=== PATIENT | male | born 1945 | race Caucasian/White ===

== ENCOUNTER 2017-04-03 16:45 | Inpatient (IN) | payer MEDICARE ==
[~2017-04-03] VITALS: Ht 170.2 cm; Wt 84.0 kg
[2017-04-03] VITALS (8 sets, daily range): BP systolic 111–123; BP diastolic 52–88; PULSE 75–100; RESP 16–20; TEMP 98.4–99.2; O2SAT 88–95
[2017-04-03] MEDS ORDERED: METO25TA3 PO (17:27)
[2017-04-03] MEDS ORDERED: ERGO2000 PO (17:27)
[2017-04-03] MEDS ORDERED: ASPI-183 PO (17:27)
[2017-04-03] MEDS ORDERED: WELC3.753 PO (17:27)
[2017-04-03] MEDS ORDERED: SIMV40TA PO (17:27)
[2017-04-03] MEDS ORDERED: CYAN1TAB24 (17:27)
[2017-04-03] MEDS ORDERED: CILO100T PO (17:27)
[2017-04-03] MEDS ORDERED: NOVOLOG PUMP (17:27)
[2017-04-03 17:39] LABS: AUTOMATED NEUTROPHIL # 9.2 TH/MM3 (1.8-7.7); BASOPHIL % 0.3 % (0.0-2.0); EOSINOPHIL % 0.1 % (0.0-4.0); HEMATOCRIT 41.5 % (39.0-51.0); HEMOGLOBIN 13.9 GM/DL (13.0-17.0); LYMPH % 3.8 % (9.0-44.0); LYMPHOCYTE # 0.4 TH/MM3 (1.0-4.8); MEAN CELL VOLUME 90.4 FL (80.0-100.0); MEAN CORPUSCULAR HEMOGLOBIN 30.4 PG (27.0-34.0); MEAN CORPUSCULAR HGB CONC 33.6 % (32.0-36.0); MEAN PLATELET VOLUME 8.9 FL (7.0-11.0); MONO % 5.6 % (0.0-8.0); MONOCYTE # 0.6 TH/MM3 (0-0.9); NEUT % 90.2 % (16.0-70.0); PLATELET COUNT 165 TH/MM3 (150-450); RED CELL DISTRIBUTION WIDTH 12.6 % (11.6-17.2); WHITE BLOOD COUNT 10.2 TH/MM3 (4.0-11.0)
[2017-04-03 17:51] LABS: CHLORIDE 105 MEQ/L (98-107); SODIUM (NA) 138 MEQ/L (136-145)
[2017-04-03 17:55] LABS: ALBUMIN 3.7 GM/DL (3.4-5.0); BICARBONATE 25.3 MEQ/L (21.0-32.0); BLOOD UREA NITROGEN 9 MG/DL (7-18); GLUCOSE,RANDOM 183 MG/DL (74-106)
[2017-04-03 17:58] LABS: ALT (GPT) 30 U/L (12-78); AST (GOT) 20 U/L (15-37); CREATININE 0.98 MG/DL (0.60-1.30); GLOMERULAR FILTRATION RATE 75 ML/MIN (>89)
[2017-04-03 18:00] LABS: TOTAL BILIRUBIN ADULT 0.4 MG/DL (0.2-1.0); TOTAL PROTEIN 6.9 GM/DL (6.4-8.2)
[2017-04-03] MEDS ORDERED: ONDANSETRON HCL 4 MG/2 ML VIAL IV PUSH ONE (18:00)
[2017-04-03] MEDS ORDERED: PANTOPRAZOLE SODIUM 40 MG VIAL IV PUSH ONE (18:00)
[2017-04-03] MEDS ORDERED: SODIUM CHLOR 0.9% 1000 ML INJ 1,000 ML IV SCH (18:00)
[2017-04-03 18:01] LABS: ALKALINE PHOSPHATASE 84 U/L (45-117)
--- NOTE | 2017-04-03 18:19 | PD ---
HPI Chief Complaint: GI Complaint Time Seen by Provider: 17:45 Travel History International Travel<30 days: No Contact w/Intl Traveler<30days: No Traveled to known affect area: No History of Present Illness HPI 71-year-old male complains of abdominal pain and nausea vomiting. Patient status post colonoscopy with polyp removal this morning at [facility]. Patient started having increasing nausea and vomiting about half an hour after the procedure. Patient's diabetic has insulin pump. Patient states that his blood sugar was elevated to 400 morning. Patient denies any headache. Patient denies any chest pain or shortness of breath. Patient states that he has mild cramping pain on the right side the abdomen. Patient denies any pain radiation. Patient denies dysuria or frequency. Patient denies any fever chills. Patient has history of diabetes, CAD status post CABG, prostatectomy. Patient also has history of peripheral vascular disease. PFSH Past Medical History Cardiovascular Problems: Yes (PERIPHERAL VASCULAR DISEASE) Diabetes: Yes (TYPE 1) Patient Takes Glucophage: No Myocardial Infarction: Yes Tetanus Vaccination: Unknown Influenza Vaccination: Yes Past Surgical History Abdominal Surgery: Yes Cardiac Surgery: Yes Coronary Artery Bypass Graft: Yes Genitourinary Surgery: Yes Insulin Pump: Yes Prostatectomy: Yes Social History Alcohol Use: Yes (ONCE OR TWICE A MONTH) Tobacco Use: No Substance Use: No Allergies-Medications (Allergen,Severity, Reaction): Coded Allergies: No Known Drug Allergies (Verified Allergy, Unknown, 04/03/17) Reported Meds & Prescriptions Reported Meds & Active Scripts Active Reported Aspirin 325 Mg Tab 325 Mg PO DAILY B12 (Cyanocobalamin) 1,000 Mcg Tab 1,200 Mcg Simvastatin 40 Mg Tab 40 Mg PO HS Vitamin D2 (Ergocalciferol) 2,000 Unit Tab 50,000 Units PO WEEKLY Cilostazol 100 Mg Tab 100 Mg PO BID Metoprolol Tartrate 25 Mg Tab 25 Mg PO BID Welchol (Colesevelam HCl) 3.75 Gm Pkt 25 Mg PO BID [Novolog Pump] Unknown Dose Review of Systems General / Constitutional: No: Fever Eyes: No: Visual changes HENT: No: Headaches Cardiovascular: No: Chest Pain or Discomfort Respiratory: No: Shortness of Breath Gastrointestinal: Positive: Nausea, Vomiting, No: Abdominal Pain Genitourinary: No: Dysuria Musculoskeletal: No: Pain Skin: No Rash Neurologic: No: Weakness Psychiatric: No: Depression Endocrine: No: Polydipsia Hematologic/Lymphatic: No: Easy Bruising Physical Exam Narrative GENERAL: Well-nourished, well-developed patient. SKIN: Focused skin assessment warm/dry. HEAD: Normocephalic. EYES: No scleral icterus. No injection or drainage. NECK: Supple, trachea midline. No JVD or lymphadenopathy. CARDIOVASCULAR: Regular rate and rhythm without murmurs, gallops, or rubs. RESPIRATORY: Breath sounds equal bilaterally. No accessory muscle use. GASTROINTESTINAL: Abdomen soft, nondistended. Patient has moderate tenderness on palpation right upper quadrant and right mid abdomen area. No rebound tenderness. No mass. MUSCULOSKELETAL: No cyanosis, or edema. BACK: Nontender without obvious deformity. No CVA tenderness. Neurologic exam: Patient's awake alert oriented 3. No obvious focal neurological deficit. Data Data Last Documented VS Vital Signs Date Time Temp Pulse Resp B/P (MAP) Pulse Ox O2 Delivery O2 Flow Rate FiO2 04/03/17 17:17 100 16 111/57 (75) 92 Nasal Cannula 2.00 04/03/17 17:01 98.8 Orders Orders Complete Blood Count With Diff (04/03/17 17:30) Comprehensive Metabolic Panel (04/03/17 17:30) Urinalysis - C+S If Indicated (04/03/17 17:30) Lipase (04/03/17 17:30) Iv Access Insert/Monitor (04/03/17 17:30) Ecg Monitoring (04/03/17 17:30) Oximetry (04/03/17 17:30) Sodium Chlor 0.9% 1000 Ml Inj (Ns 1000 M (04/03/17 18:00) Ondansetron Inj (Zofran Inj) (04/03/17 18:00) Pantoprazole Inj (Protonix Inj) (04/03/17 18:00) D-Dimer (04/03/17 17:56) Ct Abd/Pel W Iv Contrast(Rout) (04/03/17 17:57) Ct Pulmonary Angiogram (04/03/17 17:57) Chest, Single Ap (04/03/17 17:59) Labs Laboratory Tests Test 04/03/17 17:30 White Blood Count 10.2 TH/MM3 Red Blood Count 4.60 MIL/MM3 Hemoglobin 13.9 GM/DL Hematocrit 41.5 % Mean Corpuscular Volume 90.4 FL Mean Corpuscular Hemoglobin 30.4 PG Mean Corpuscular Hemoglobin Concent 33.6 % Red Cell Distribution Width 12.6 % Platelet Count 165 TH/MM3 Mean Platelet Volume 8.9 FL Neutrophils (%) (Auto) 90.2 % Lymphocytes (%) (Auto) 3.8 % Monocytes (%) (Auto) 5.6 % Eosinophils (%) (Auto) 0.1 % Basophils (%) (Auto) 0.3 % Neutrophils # (Auto) 9.2 TH/MM3 Lymphocytes # (Auto) 0.4 TH/MM3 Monocytes # (Auto) 0.6 TH/MM3 Eosinophils # (Auto) 0.0 TH/MM3 Basophils # (Auto) 0.0 TH/MM3 CBC Comment DIFF FINAL Differential Comment Blood Urea Nitrogen 9 MG/DL Creatinine 0.98 MG/DL Random Glucose 183 MG/DL Total Protein 6.9 GM/DL Albumin 3.7 GM/DL Calcium Level 8.0 MG/DL Alkaline Phosphatase 84 U/L Aspartate Amino Transf (AST/SGOT) 20 U/L Alanine Aminotransferase (ALT/SGPT) 30 U/L Total Bilirubin 0.4 MG/DL Sodium Level 138 MEQ/L Potassium Level 3.7 MEQ/L Chloride Level 105 MEQ/L Carbon Dioxide Level 25.3 MEQ/L Anion Gap 8 MEQ/L Estimat Glomerular Filtration Rate 75 ML/MIN Lipase 55 U/L MDM Medical Decision Making Medical Screen Exam Complete: Yes Emergency Medical Condition: Yes Differential Diagnosis Differential diagnosis including bowel obstruction, gastroenteritis, bowel perforation, ileus, gastritis, pancreatitis, colitis, UTI, pyelonephritis, nephrolithiasis. Narrative Course 71-year-old male abdominal pain and nausea vomiting. Status post colonoscopy with polyp removal This morning. Normal saline solution 1 25 cc an hour. Zofran 4 mg IV. Protonix 40 mg IV. Patient also with mild hypoxemia. CT pulmonary angiogram be done to rule out PE. Dickson Garvey MD Apr 03, 2017 18:19
--- NOTE | 2017-04-03 18:23 | RADRPT ---
EXAM DATE/TIME: 04/03/2017 18:08 [facility] COMPARISON: No previous studies available for comparison. INDICATIONS : Weakness, vomiting post colonoscopy this morning MEDICAL HISTORY : Cardiovascular disease. SURGICAL HISTORY : CABG. ENCOUNTER: Initial ACUITY: 1 day PAIN SCORE: 0/10 LOCATION: Bilateral chest FINDINGS: A single view of the chest demonstrates the lungs to be symmetrically aerated without evidence of mas s, infiltrate or effusion. The 5 mm calcified granuloma lower lateral right lung. The cardiomediast inal contours are unremarkable. Osseous structures are intact. Prior median sternotomy with intact sternal wire sutures. CONCLUSION: The lungs are clear. No acute findings. Wesly Granda MD on April 03, 2017 at 18:20 Board Certified Radiologist. This report was verified electronically.
[2017-04-03 18:52] LABS: D-DIMER 1.14 MG/L FEU (0.00-0.50)
[2017-04-03 19:04] LABS: INTERNATIONAL NORMALIZED RATIO 1.1 RATIO; PROTHROMBIN TIME - PATIENT 11.2 SEC (9.8-11.6)
[2017-04-03] MEDS ORDERED: IOHEXOL 350 MG/ML 10 ML VIAL (for RAD DIAG) IVCONTRAST ONE ×3 (19:22→21:31)
--- NOTE | 2017-04-03 19:45 | RADRPT ---
EXAM DATE/TIME: 04/03/2017 19:06 [facility] COMPARISON: No previous studies available for comparison. INDICATIONS : Nausea and vomiting status post colonoscopy with polyp removal today. Elevated D-dimer IV CONTRAST: 100 cc Omnipaque 350 (iohexol) IV ; Cumulative dose for multiple exams. RADIATION DOSE: 23.87 CTDIvol (mGy) MEDICAL HISTORY : Myocardial infarction. Diabetes mellitus type 1. Peripheral vascular disease. SURGICAL HISTORY : CABG Insulin pump. ENCOUNTER: Initial ACUITY: 1 day PAIN SCALE: 0/10 LOCATION: chest TECHNIQUE: Volumetric scanning of the chest was performed using a pulmonary embolism protocol MIP images were re constructed. Using automated exposure control and adjustment of the mA and/or kV according to patien t size, radiation dose was kept as low as reasonably achievable to obtain optimal diagnostic quality images. DICOM format image data is available electronically for review and comparison. Follow-up recommendations for detected pulmonary nodules are based at a minimum on nodule size and pa tient risk factors according to Fleischner Society Guidelines. FINDINGS: The examination is of moderate diagnostic quality. No large or central pulmonary embolus identified. Tertiary branches are not well-seen. The heart is normal in size. There is no hilar or mediastinal adenopathy. There is moderate atheroscl erotic plaquing of the coronary arteries. The patient is post median sternotomy. No pericardial effus ion is identified. There are mild atelectatic changes in the lung bases. In addition, the examination demonstrates a 6 m m calcified granuloma in the right lower lobe. The visualized portion of upper abdomen demonstrates a small amount of free intraperitoneal air benea th the hemidiaphragm. This is only partially visualized. CT imaging of the abdomen and pelvis would b e of benefit for further assessment. CONCLUSION: 1. There is very limited visualization of the upper abdomen. This demonstrates some punctate collecti ons of free air. CT imaging of the abdomen and pelvis would be warranted for further assessment. 2. No pulmonary embolus identified. 3. Atelectatic changes in the lung bases. 4. 6 mm calcified granuloma in the right lower lobe. Gulshan Carson MD on April 03, 2017 at 19:39 Board Certified Radiologist. This report was verified electronically.
--- NOTE | 2017-04-03 19:53 | RADRPT ---
EXAM DATE/TIME: 04/03/2017 19:06 [facility] COMPARISON: No previous studies available for comparison. INDICATIONS : Nausea and vomiting status post colonoscopy with polyp removal today. IV CONTRAST: 100 cc Omnipaque 350 (iohexol) IV ; Cumulative dose for multiple exams. ORAL CONTRAST: No oral contrast ingested. RADIATION DOSE: 21.64 CTDIvol (mGy) MEDICAL HISTORY : Diabetes mellitus type 1. Peripheral vascular disease. Myocardial infarction. SURGICAL HISTORY : Prostatectomy. CABGInsulin pump. ENCOUNTER: Initial ACUITY: 1 day PAIN SCALE: 0/10 LOCATION: abdomen TECHNIQUE: Volumetric scanning of the abdomen and pelvis was performed. Using automated exposure control and ad justment of the mA and/or kV according to patient size, radiation dose was kept as low as reasonably achievable to obtain optimal diagnostic quality images. DICOM format image data is available electro nically for review and comparison. FINDINGS: The limited portion of the lung base visualized demonstrates atelectatic change in the lung bases but is otherwise clear. Note is made of calcified granuloma in the subcarinal grace chain. The examinati on also demonstrates a 5 mm calcification in the right lower lobe. The appearance of the liver, spleen, pancreas, adrenal glands and kidneys is within normal limits. The abdominal aorta is normal in caliber. There is no retroperitoneal lymphadenopathy. The visualized loops of small and large bowel demonstrate a dilated fluid-filled appendix. There is s ome subtle inflammatory change around this. There is no evidence of bowel obstruction. There is no free fluid within the pelvis. No iliac or inguinal adenopathy is seen. The examination does demonstrate multiple small pockets of free intraperitoneal air. The osseous structures are intact. CONCLUSION: 1. There is free intraperitoneal air. 2. There is a dilated loop filled appendix. There is some subtle inflammatory change around this. Thi s would suggest possible appendicitis. Gulshan Carson MD on April 03, 2017 at 19:48 Board Certified Radiologist. This report was verified electronically.
--- NOTE | 2017-04-03 19:59 | PD ---
Physical Exam Date Seen by Provider: Apr 03, 2017 Time Seen by Provider: 19:55 Narrative Accepted in transfer care from Dr. Garvey GENERAL: Well-developed and nourished male in no acute distress no respiratory distress SKIN: Warm and dry. CARDIOVASCULAR: Increased regular rate and rhythm without murmurs, gallops, or rubs. RESPIRATORY: Breath sounds equal bilaterally. No accessory muscle use. GASTROINTESTINAL: Abdomen soft, non-tender, nondistended. Data Data Last Documented VS Vital Signs Date Time Temp Pulse Resp B/P (MAP) Pulse Ox O2 Delivery O2 Flow Rate FiO2 04/03/17 19:21 89 16 120/88 (99) 95 Nasal Cannula 04/03/17 17:17 2.00 04/03/17 17:01 98.8 Orders Orders Complete Blood Count With Diff (04/03/17 17:30) Comprehensive Metabolic Panel (04/03/17 17:30) Urinalysis - C+S If Indicated (04/03/17 17:30) Lipase (04/03/17 17:30) Iv Access Insert/Monitor (04/03/17 17:30) Ecg Monitoring (04/03/17 17:30) Oximetry (04/03/17 17:30) Sodium Chlor 0.9% 1000 Ml Inj (Ns 1000 M (04/03/17 18:00) Ondansetron Inj (Zofran Inj) (04/03/17 18:00) Pantoprazole Inj (Protonix Inj) (04/03/17 18:00) D-Dimer (04/03/17 17:56) Ct Abd/Pel W Iv Contrast(Rout) (04/03/17 17:57) Ct Pulmonary Angiogram (04/03/17 17:57) Chest, Single Ap (04/03/17 17:59) Act Partial Throm Time (Ptt) (04/03/17 18:00) Prothrombin Time / Inr (Pt) (04/03/17 18:00) Iohexol 350 Inj (Omnipaque 350 Inj) (04/03/17 19:22) Piperacil-Tazo 4.5 Gm Premix (Zosyn 4.5 (04/03/17 20:00) Labs Laboratory Tests Test 04/03/17 17:30 04/03/17 18:00 White Blood Count 10.2 TH/MM3 Red Blood Count 4.60 MIL/MM3 Hemoglobin 13.9 GM/DL Hematocrit 41.5 % Mean Corpuscular Volume 90.4 FL Mean Corpuscular Hemoglobin 30.4 PG Mean Corpuscular Hemoglobin Concent 33.6 % Red Cell Distribution Width 12.6 % Platelet Count 165 TH/MM3 Mean Platelet Volume 8.9 FL Neutrophils (%) (Auto) 90.2 % Lymphocytes (%) (Auto) 3.8 % Monocytes (%) (Auto) 5.6 % Eosinophils (%) (Auto) 0.1 % Basophils (%) (Auto) 0.3 % Neutrophils # (Auto) 9.2 TH/MM3 Lymphocytes # (Auto) 0.4 TH/MM3 Monocytes # (Auto) 0.6 TH/MM3 Eosinophils # (Auto) 0.0 TH/MM3 Basophils # (Auto) 0.0 TH/MM3 CBC Comment DIFF FINAL Differential Comment Blood Urea Nitrogen 9 MG/DL Creatinine 0.98 MG/DL Random Glucose 183 MG/DL Total Protein 6.9 GM/DL Albumin 3.7 GM/DL Calcium Level 8.0 MG/DL Alkaline Phosphatase 84 U/L Aspartate Amino Transf (AST/SGOT) 20 U/L Alanine Aminotransferase (ALT/SGPT) 30 U/L Total Bilirubin 0.4 MG/DL Sodium Level 138 MEQ/L Potassium Level 3.7 MEQ/L Chloride Level 105 MEQ/L Carbon Dioxide Level 25.3 MEQ/L Anion Gap 8 MEQ/L Estimat Glomerular Filtration Rate 75 ML/MIN Lipase 55 U/L Prothrombin Time 11.2 SEC Prothromb Time International Ratio 1.1 RATIO Activated Partial Thromboplast Time 25.0 SEC D-Dimer Quantitative (PE/DVT) 1.14 MG/L [facility]U [facility] Medical Record Reviewed: Yes Supervised Visit with KEVIN: No Differential Diagnosis Accepted in transfer of care from Dr. Dennis please refer to his dictation Narrative Course Accepted transfer of care from Dr. Dukes please refer to his dictation; plan follow-up pending imaging studies CT pulmonary angiogram and CT abdomen pelvis. Patient with recent colonoscopy performed today at [facility] with 3.5 cm sessile polyp biopsy near the appendiceal orifice. Patient subsequently developed right-sided abdominal discomfort. Patient had mild tachycardia. Patient was identified to have an elevated d-dimer with a room air O2 sat upon arrival in 88%; Blood pressure has been stable and hemoglobin was identified to be within normal range at 13.9. Patient with history of insulin-dependent diabetes on insulin pump, CAD with MN and CABG, peripheral vascular disease, dyslipidemia, prostatectomy Patient informed of imaging results which shows no PE evidence of subdiaphragmatic free air with inflammatory changes about the fluid-filled appendix; call placed to general surgery Physician Communication Physician Communication call placed to Analy Beyer MD Apr 03, 2017 19:59
[2017-04-03] MEDS ORDERED: PIPERACIL-TAZO 4.5 GM PREMIX 100 ML IV ONE (20:00)
[2017-04-03] MEDS ORDERED: LEVOFLOXACIN 500 MG PREMIX INJ 100 ML IV ONE (20:15)
[2017-04-03] MEDS ORDERED: SODIUM CHLORID 0.9% 500 ML INJ 500 ML IV ONE (20:15)
[2017-04-03] MEDS ORDERED: metroNIDAZOLE 500 MG INJ 100 ML IV ONE (20:15)
--- NOTE | 2017-04-03 21:24 | PD.CONS ---
HPI Service General Surgery Consult Requested By Dr. Churchill Reason for Consult Free air Primary Care Physician Ifeanyi Damon MD History of Present Illness 71 yo M presents with vomiting and abdominal pain. Patient had a large polyp at appendiceal orifice found by Dr. Gaming. The patient was treated this morning at [facility] with endoscopic mucosal resection of 3cm polyp (prior path benign ) with successful removal of entire polyp. About 30 minutes after the procedure he began having nausea and subsequently developed vomiting. The vomiting has been persistent and he also developed severe abdominal pain primarily in the right lower abdomen. He presented to [place] emergency department was noted to have mild tachycardia and severe tenderness in the right lower abdomen. He has a white blood count of 10,000 with 90% neutrophils. CT scan of the abdomen and pelvis shows free intraperitoneal air. There is fluid filled appendix and some surrounding inflammatory changes. I reviewed the images. The patient has a past surgical history of CABG and prostatectomy which appears to be robotic. He is a type I diabetic and has an insulin pump. Review of Systems Constitutional: DENIES: Fever, Chills Eyes: DENIES: Eye inflammation, Eye pain Ears, nose, mouth, throat: DENIES: Oral lesions, Throat pain Respiratory: DENIES: Cough, Shortness of breath Cardiovascular: DENIES: Chest pain, Palpitations Gastrointestinal: COMPLAINS OF: Abdominal pain, Nausea, Vomiting Integumentary: DENIES: Pruritus, Rash Neurologic: DENIES: Seizures, Speech Problems Past Family Social History Past Medical History CAD status post CABG Prostate cancer status post prostatectomy Type 1 diabetes mellitus with insulin pump PVD Past Surgical History CABG Prostatectomy Reported Medications Reported Meds & Active Scripts Active Reported Aspirin 325 Mg Tab 325 Mg PO DAILY B12 (Cyanocobalamin) 1,000 Mcg Tab 1,200 Mcg Simvastatin 40 Mg Tab 40 Mg PO HS Vitamin D2 (Ergocalciferol) 2,000 Unit Tab 50,000 Units PO WEEKLY Cilostazol 100 Mg Tab 100 Mg PO BID Metoprolol Tartrate 25 Mg Tab 25 Mg PO BID Welchol (Colesevelam HCl) 3.75 Gm Pkt 25 Mg PO BID [Novolog Pump] Unknown Dose Allergies: Coded Allergies: No Known Drug Allergies (Verified Allergy, Unknown, 04/03/17) Active Ordered Medications Current Medications Medications (Trade) Dose Ordered Sig/Abbie Route Start Time Stop Time Status Last Admin Sodium Chloride 1,000 ml @ 125 mls/hr Q8H IV 04/03/17 18:00 04/03/17 18:08 Metronidazole 100 ml @ 100 mls/hr ONCE ONCE IV 04/03/17 20:15 04/03/17 21:14 Levofloxacin/ Dextrose 100 ml @ 100 mls/hr ONCE ONCE IV 04/03/17 20:15 04/03/17 21:14 04/03/17 20:49 Sodium Chloride 500 ml @ 500 mls/hr BOLUS ONCE IV 04/03/17 20:15 04/03/17 21:14 04/03/17 20:49 Family History Noncontributory Social History 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 He is here with his . No tobacco or drug use. Occasional alcohol use. Physical Exam Vital Signs Vital Signs Date Time Temp Pulse Resp B/P (MAP) Pulse Ox O2 Delivery O2 Flow Rate FiO2 04/03/17 19:21 89 16 120/88 (99) 95 Nasal Cannula 04/03/17 17:17 100 16 111/57 (75) 92 Nasal Cannula 2.00 04/03/17 17:10 Nasal Cannula 2.00 04/03/17 17:10 88 Room Air 04/03/17 17:01 98.8 99 20 121/62 (81) 88 Physical Exam GENERAL: Awake and alert. Cooperative. Does not appear critically ill but is in some pain. Mild tachycardia. HEAD: Normocephalic. Atraumatic. EYES: Pupils equal round and reactive to light bilaterally. No scleral icterus. ENT: Moist oral mucosa. NECK: Trachea midline. CHEST: Nonlabored breathing. No respiratory distress. CARDIOVASCULAR: Regular rate and rhythm. ABDOMEN: Mild distention. Small midline scar at umbilicus with a associated small reducible umbilical hernia. Severe left lower quadrant tenderness to deep palpation. Severe right lower quadrant tenderness and rebound. Otherwise nontender. EXTREMITIES: No cyanosis or edema. SKIN: Warm, dry, nonjaundiced. Appears somewhat pale. Laboratory Laboratory Tests Test 04/03/17 17:30 04/03/17 18:00 04/03/17 20:20 White Blood Count 10.2 Red Blood Count 4.60 Hemoglobin 13.9 Hematocrit 41.5 Mean Corpuscular Volume 90.4 Mean Corpuscular Hemoglobin 30.4 Mean Corpuscular Hemoglobin Concent 33.6 Red Cell Distribution Width 12.6 Platelet Count 165 Mean Platelet Volume 8.9 Neutrophils (%) (Auto) 90.2 Lymphocytes (%) (Auto) 3.8 Monocytes (%) (Auto) 5.6 Eosinophils (%) (Auto) 0.1 Basophils (%) (Auto) 0.3 Neutrophils # (Auto) 9.2 Lymphocytes # (Auto) 0.4 Monocytes # (Auto) 0.6 Eosinophils # (Auto) 0.0 Basophils # (Auto) 0.0 CBC Comment DIFF FINAL Differential Comment Blood Urea Nitrogen 9 Creatinine 0.98 Random Glucose 183 Total Protein 6.9 Albumin 3.7 Calcium Level 8.0 Alkaline Phosphatase 84 Aspartate Amino Transf (AST/SGOT) 20 Alanine Aminotransferase (ALT/SGPT) 30 Total Bilirubin 0.4 Sodium Level 138 Potassium Level 3.7 Chloride Level 105 Carbon Dioxide Level 25.3 Anion Gap 8 Estimat Glomerular Filtration Rate 75 Lipase 55 Prothrombin Time 11.2 Prothromb Time International Ratio 1.1 Activated Partial Thromboplast Time 25.0 D-Dimer Quantitative (PE/DVT) 1.14 Lactic Acid Level 2.4 Date/Time Source Procedure Growth Status 04/03/17 20:30 Blood Peripheral Aerobic Blood Culture Pending Received 04/03/17 20:30 Blood Peripheral Anaerobic Blood Culture Pending Received Result Diagram: 04/03/17 1730 04/03/17 173 Imaging Last Impressions Chest X-Ray 04/03/[id number] Signed Impressions: Service Date/Time: Monday, April 03, 2017 18:08 - CONCLUSION: The lungs are clear. No acute findings. Wesly Granda MD CT Angiography 04/03/[id number] Signed Impressions: Service Date/Time: Monday, April 03, 2017 19:06 - CONCLUSION: 1. There is very limited visualization of the upper abdomen. This demonstrates some punctate collections of free air. CT imaging of the abdomen and pelvis would be warranted for further assessment. 2. No pulmonary embolus identified. 3. Atelectatic changes in the lung bases. 4. 6 mm calcified granuloma in the right lower lobe. Gulshan Carson MD Abdomen/Pelvis CT 04/03/17 [id number] Signed Impressions: Service Date/Time: Monday, April 03, 2017 19:06 - CONCLUSION: 1. There is free intraperitoneal air. 2. There is a dilated loop filled appendix. There is some subtle inflammatory change around this. This would suggest possible appendicitis. Gulshan Carson MD Assessment and Plan Assessment and Plan 71-year-old male who underwent endoscopic mucosal resection of approximately 3 cm adenomatous polyp at appendiceal orifice this morning. The patient had unrecognized perforation and became symptomatic soon after the procedure was performed. Peritonitis is localized to the right lower quadrant. He does not appear significantly ill at this time. CT abdomen and pelvis shows small to moderate amount of free air with a small amount of free fluid on my reading. Dilated fluid-filled appendix is consistent with the history. I've had a discussion with the patient and his and recommend at this time to attempt nonoperative management. He will be kept nothing by mouth and placed on Levaquin and Flagyl. She will be closely monitored and reassessed tomorrow morning. If there is any clinical worsening he will be taken to the operating room for colectomy. According to his , pathology may be available as soon as tomorrow which may also affect decision making. They understand the situation and desire to proceed as discussed. Charly Cabrera MD Apr 03, 2017 21:24
[2017-04-03] MEDS: SODIUM CHLOR 0.9% 1000 ML INJ 1,000 ML IV SCH (21:25)
[2017-04-03] MEDS ORDERED: MAGNESIUM HYDROXIDE SUSP 30 ML CUP PO PRN (21:30)
[2017-04-03] MEDS ORDERED: LACTULOSE SYRUP 20 GM/30 ML CUP PO PRN (21:30)
[2017-04-03] MEDS ORDERED: BISACODYL 10 MG SUPP RECTAL PRN (21:30)
[2017-04-03] MEDS ORDERED: SENNOSIDES 8.6 MG TAB PO PRN (21:30)
[2017-04-03] MEDS ORDERED: MORPHINE SULFATE 2 MG/ML INJ IV PUSH PRN (21:30)
[2017-04-03] MEDS ORDERED: ACETAMINOPHEN 325 MG TAB PO PRN (21:30)
[2017-04-03] MEDS ORDERED: SODIUM CHLORIDE 0.9% FLUSH 10 ML FLUSH IV FLUSH PRN (21:30)
[2017-04-03] MEDS ORDERED: NALOXONE HCL 0.4 MG/ML AMP IV PUSH PRN (21:30)
[2017-04-03] MEDS: D5-1/2 NS + KCL 20 MEQ INJ 1,000 ML IV SCH (22:40)
[2017-04-04] VITALS (26 sets, daily range): BP systolic 102–120; BP diastolic 42–58; PULSE 80–100; RESP 15–19; TEMP 98–99.4; O2SAT 92–94
[2017-04-04] MEDS ORDERED: DEXTROSE 50% IN WATER 50 ML VIAL(D50) IV PUSH PRN (02:45)
[2017-04-04] MEDS ORDERED: GLUCAGON 1 MG/ML VIAL OTHER PRN (02:45)
[2017-04-04 03:14] LABS: AUTOMATED NEUTROPHIL # 11.2 TH/MM3 (1.8-7.7); BASOPHIL % 0.1 % (0.0-2.0); HEMATOCRIT 36.4 % (39.0-51.0); HEMOGLOBIN 12.8 GM/DL (13.0-17.0); LYMPH % 4.6 % (9.0-44.0); LYMPHOCYTE # 0.6 TH/MM3 (1.0-4.8); MEAN CELL VOLUME 89.7 FL (80.0-100.0); MEAN CORPUSCULAR HEMOGLOBIN 31.6 PG (27.0-34.0); MEAN CORPUSCULAR HGB CONC 35.2 % (32.0-36.0); MEAN PLATELET VOLUME 8.9 FL (7.0-11.0); MONO % 5.5 % (0.0-8.0); MONOCYTE # 0.7 TH/MM3 (0-0.9); NEUT % 89.8 % (16.0-70.0); PLATELET COUNT 143 TH/MM3 (150-450); RED BLOOD COUNT 4.06 MIL/MM3 (4.50-5.90); RED CELL DISTRIBUTION WIDTH 13.2 % (11.6-17.2); WHITE BLOOD COUNT 12.4 TH/MM3 (4.0-11.0)
[2017-04-04 03:20] LABS: CALCIUM 7.6 MG/DL (8.5-10.1); CREATININE 0.75 MG/DL (0.60-1.30)
[2017-04-04 04:00] LABS: BILIRUBIN, URINE NEG (NEG); BLOOD, URINE NEG (NEG); GLUCOSE,URINE 300 mg/dL (NEG); KETONE, URINE 80 mg/dL (NEG); MUCUS URINE FEW /lpf (OCC); NITRITE,URINE NEG (NEG); URINE COLOR YELLOW (YELLW/STRAW); URINE LEUKOCYTE ESTERASE NEG (NEG)
[2017-04-04] MEDS: metroNIDAZOLE 500 MG INJ 100 ML IV SCH ×4 (04:00→21:12)
[2017-04-04] MEDS: INSULIN ASPART SUPPLEMENTAL SCALE SQ SCH ×5 (06:03→23:13)
--- NOTE | 2017-04-04 06:30 | HHI.HP ---
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 Abdominal CT scan in ED showed small to moderate amount of free air and small amount of free fluid. He was seen by Dr. Cabrera from general surgery in the [place] ED who recommended conservative management with NPO status and transfer to [facility] under the hospitalist team for medical management for other chronic medical conditions. The patient is seen in his hospital room. He reports that he had the endoscopic resection of the polyp at [facility] 04/03 and went home. He became concerned when he developed acute nausea and vomiting with mild to moderate abdominal pain in the right lower abdominal quadrant and went to the ER for evaluation. He is currently denying any abdominal pain unless the right lower quadrant is palpated or unless he coughs - then the pain is moderate in intensity. He does not feel the need for pain medications since his pain is intermittent and very brief in it's duration. He denies any fevers, chills, sob , cough, or chest pain. Review of Systems Except as stated in HPI: all other systems reviewed are Neg Past Family Social History Past Medical History PVD s/p right BKA 2007 CAD HI Prostate CA s/p prostatectomy and radiation Macular Degeneration Denies hypertension, pulmonary disease, CHF, atrial fibrillation, liver problems , kidney problems, DVT, PE, CVA, seizures . Past Surgical History Right BKA 2007 CABG x 6 Prostatectomy . Reported Medications Reported Meds & Active Scripts Active Reported Aspirin 325 Mg Tab 325 Mg PO DAILY B12 (Cyanocobalamin) 1,000 Mcg Tab 1,200 Mcg Simvastatin 40 Mg Tab 40 Mg PO HS Vitamin D2 (Ergocalciferol) 2,000 Unit Tab 50,000 Units PO WEEKLY Cilostazol 100 Mg Tab 100 Mg PO BID Metoprolol Tartrate 25 Mg Tab 25 Mg PO BID Welchol (Colesevelam HCl) 3.75 Gm Pkt 25 Mg PO BID [Novolog Pump] Unknown Dose . Allergies: Coded Allergies: No Known Drug Allergies (Verified Allergy, Unknown, 04/03/17) Family History Father with colon cancer . Social History Tobacco: smoked until 1981, smoked about 1 PPD x 20 years Alcohol: drinks about 1 - 2 drinks per month, socially He is a retired radiologist, he is originally from [place] . Physical Exam Vital Signs Vital Signs Date Time Temp Pulse Resp B/P (MAP) Pulse Ox O2 Delivery O2 Flow Rate FiO2 04/04/17 05:00 93 04/04/17 04:18 93 04/04/17 03:27 98.6 100 15 102/42 (62) 93 04/04/17 03:27 96 04/04/17 02:00 93 04/04/17 01:05 99 04/04/17 01:05 99.4 95 17 110/57 (74) 94 04/04/17 00:00 97 04/03/17 23:55 90 04/03/17 23:19 98.4 103 114/52 (72) 96 04/03/17 22:30 99.2 04/03/17 21:00 75 16 123/52 (75) 95 Nasal Cannula 4.00 04/03/17 19:21 89 16 120/88 (99) 95 Nasal Cannula 04/03/17 17:17 100 16 111/57 (75) 92 Nasal Cannula 2.00 04/03/17 17:10 Nasal Cannula 2.00 04/03/17 17:10 88 Room Air 04/03/17 17:01 98.8 99 20 121/62 (81) 88 Physical Exam CONSTITUTIONAL: This is a very pleasant overweight older male patient, in no apparent distress. INTEGUMENTARY: No rashes. Cool and dry. HEAD: Atraumatic. Normocephalic. EYES: Right scleral injection noted - s/p injection 04/01 for macular degeneration. No drainage. ENT: Nose without bleeding, purulent drainage. Airway patent. NECK: Trachea midline. No JVD. CARDIOVASCULAR: Regular rate and rhythm without murmurs, gallops, or rubs. RESPIRATORY: Breath sounds diminished but equal bilaterally. No wheezes, rales, or rhonchi. GASTROINTESTINAL: Abdomen soft, non-tender, nondistended. No hepato-splenomegaly , or palpable masses. No guarding. MUSCULOSKELETAL: Extremities without clubbing, cyanosis, or edema. Moves all extremities equally. Right BKA noted. NEUROLOGICAL: Awake and alert. Motor and sensory grossly within normal limits. Normal speech. . Laboratory Laboratory Tests Test 04/03/17 17:30 04/03/17 18:00 04/03/17 20:20 04/04/17 02:56 White Blood Count 10.2 12.4 Red Blood Count 4.60 4.06 Hemoglobin 13.9 12.8 Hematocrit 41.5 36.4 Mean Corpuscular Volume 90.4 89.7 Mean Corpuscular Hemoglobin 30.4 31.6 Mean Corpuscular Hemoglobin Concent 33.6 35.2 Red Cell Distribution Width 12.6 13.2 Platelet Count 165 143 Mean Platelet Volume 8.9 8.9 Neutrophils (%) (Auto) 90.2 89.8 Lymphocytes (%) (Auto) 3.8 4.6 Monocytes (%) (Auto) 5.6 5.5 Eosinophils (%) (Auto) 0.1 0.0 Basophils (%) (Auto) 0.3 0.1 Neutrophils # (Auto) 9.2 11.2 Lymphocytes # (Auto) 0.4 0.6 Monocytes # (Auto) 0.6 0.7 Eosinophils # (Auto) 0.0 0.0 Basophils # (Auto) 0.0 0.0 CBC Comment DIFF FINAL DIFF FINAL Differential Comment Blood Urea Nitrogen 9 10 Creatinine 0.98 0.75 Random Glucose 183 247 Total Protein 6.9 Albumin 3.7 Calcium Level 8.0 7.6 Alkaline Phosphatase 84 Aspartate Amino Transf (AST/SGOT) 20 Alanine Aminotransferase (ALT/SGPT) 30 Total Bilirubin 0.4 Sodium Level 138 139 Potassium Level 3.7 4.1 Chloride Level 105 106 Carbon Dioxide Level 25.3 25.0 Anion Gap 8 8 Estimat Glomerular Filtration Rate 75 103 Lipase 55 Prothrombin Time 11.2 Prothromb Time International Ratio 1.1 Activated Partial Thromboplast Time 25.0 D-Dimer Quantitative (PE/DVT) 1.14 Lactic Acid Level 2.4 1.3 Test 04/04/17 03:20 Urine Color YELLOW Urine Turbidity CLEAR Urine pH 6.0 Urine Specific [place] GREATER THAN 1.050 Urine Protein TRACE Urine Glucose (UA) 300 Urine Ketones 80 Urine Occult Blood NEG Urine Nitrite NEG Urine Bilirubin NEG Urine Urobilinogen LESS THAN 2.0 Urine Leukocyte Esterase NEG Urine RBC 1 Urine WBC 1 Urine Mucus FEW Microscopic Urinalysis Comment CULT NOT INDICATED Date/Time Source Procedure Growth Status 04/03/17 20:30 Blood Peripheral Aerobic Blood Culture Pending Received 04/03/17 20:30 Blood Peripheral Anaerobic Blood Culture Pending Received Result Diagram: 04/04/1725504/04/17 025 Imaging Last Impressions Chest X-Ray 04/03/171758 Signed Impressions: Service Date/Time: Monday, April 03, 2017 18:08 - CONCLUSION: The lungs are clear. No acute findings. Wesly Granda MD CT Angiography 04/03/171756 Signed Impressions: Service Date/Time: Monday, April 03, 2017 19:06 - CONCLUSION: 1. There is very limited visualization of the upper abdomen. This demonstrates some punctate collections of free air. CT imaging of the abdomen and pelvis would be warranted for further assessment. 2. No pulmonary embolus identified. 3. Atelectatic changes in the lung bases. 4. 6 mm calcified granuloma in the right lower lobe. Gulshan Carson MD Abdomen/Pelvis CT 04/03/171756 Signed Impressions: Service Date/Time: Monday, April 03, 2017 19:06 - CONCLUSION: 1. There is free intraperitoneal air. 2. There is a dilated loop filled appendix. There is some subtle inflammatory change around this. This would suggest possible appendicitis. Gulshan Carson MD . Caprini VTE Risk Assessment Caprini VTE Risk Assessment: Mod/High Risk (score >= 2) Caprini Risk Assessment Model Point Value = 1 Point Value = 2 Point Value = 3 Point Value = 5 Age 41-60 Minor surgery BMI > 25 kg/m2 Swollen legs Varicose veins or History of unexplained or recurrent spontaneous Oral contraceptives or hormone replacement Sepsis (< 1 month) Serious lung disease, including pneumonia (< 1 month) Abnormal pulmonary function Acute myocardial infarction Congestive heart failure (< 1 month) History of inflammatory bowel disease Medical patient at bed rest Age 61-74 Arthroscopic surgery Major open surgery (> 45 min) Laparoscopic surgery (> 45 min) Malignancy Confined to bed (> 72 hours) Immobilizing plaster cast Central venous access Age >= 75 History of VTE Family history of VTE Factor V Leiden Prothrombin [id number] Lupus anticoagulant Anticardiolipin antibodies Elevated serum homocysteine Heparin-induced thrombocytopenia Other congenital or acquired thrombophilia Stroke (< 1 month) Elective arthroplasty Hip, pelvis, or leg fracture Acute spinal cord injury (< 1 month) Prophylaxis Regimen Total Risk Factor Score Risk Level Prophylaxis Regimen 0-1 Low Early ambulation 2 Moderate Order ONE of the following: *Sequential Compression Device (SCD) *Heparin 5000 units SQ BID 3-4 Higher Order ONE of the following medications: *Heparin 5000 units SQ TID *Enoxaparin/Lovenox 40 mg SQ daily (WT < 150 kg, CrCl > 30 mL/min) *Enoxaparin/Lovenox 30 mg SQ daily (WT < 150 kg, CrCl > 10-29 mL/min) *Enoxaparin/Lovenox 30 mg SQ BID (WT < 150 kg, CrCl > 30 mL/min) AND/OR *Sequential Compression Device (SCD) 5 or more Highest Order ONE of the following medications: *Heparin 5000 units SQ TID (Preferred with Epidurals) *Enoxaparin/Lovenox 40 mg SQ daily (WT < 150 kg, CrCl > 30 mL/min) *Enoxaparin/Lovenox 30 mg SQ daily (WT < 150 kg, CrCl > 10-29 mL/min) *Enoxaparin/Lovenox 30 mg SQ BID (WT < 150 kg, CrCl > 30 mL/min) AND *Sequential Compression Device (SCD) Assessment and Plan Problem List: (1) Pneumoperitoneum ICD Code: K66.8 - Other specified disorders of peritoneum (2) Type 1 diabetes mellitus ICD Code: E10.9 - Type 1 diabetes mellitus without complications Status: Chronic Assessment and Plan 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 Abdominal CT scan in ED showed small to moderate amount of free air and small amount of free fluid. He was seen by Dr. Cabrera from general surgery in the [place] ED who recommended conservative management with NPO status and transfer to [facility] under the hospitalist team for medical management for other chronic medical conditions. Pneumoperitoneum - Abdomen/Pelvis CT shows small to moderate free air/small free fluid and appendix dilatation - General surgery consulted - patient seen by Dr. Cabrera - appreciate assistance - NPO - Antibiotics: Levaquin/Flagyl IV - D5 1/2 NS with KCl 20 meq at 100 cc/hr - Morphine 2 mg IV 4h PRN pain - Zofran 4 mg IV q6h PRN nausea/vomiting T1DM - took home his insulin pump - RN called and asked her to return it to hospital - Accuchecks q4h with low dose NovoLog coverage - PRN hypoglycemia treatment protocol ordered - monitor blood glucose results and adjust treatment as indicated CAD - resume home simvastatin, Welchol, and metoprolol when no longer NPO PVD - resume home Pletal when no longer NPO DVT prophylaxis - SCDs/TEDs on left leg (right bka) . Discussed Condition With Dr. Cooper, RN, and patient . Physician Certification 2 Midnight Certification Type: Admission for Inpatient Services Order for Inpatient Services The services are ordered in accordance with Medicare regulations or non- Medicare payer requirements, as applicable. In the case of services not specified as inpatient-only, they are appropriately provided as inpatient services in accordance with the 2-midnight benchmark. Estimated LOS (days): 3 days is the estimated time the patient will need to remain in the hospital, assuming treatment plan goals are met and no additional complications. Post-Hospital Plan: Home Camille Thorne Apr 04, 2017 06:30
[2017-04-04] MEDS: SODIUM CHLOR 0.9% 1000 ML INJ 1,000 ML IV SCH ×2 (07:25→17:25)
[2017-04-04] MEDS ORDERED: INSULIN ASPART SUPPLEMENTAL SCALE SQ SCH (08:00)
[2017-04-04] MEDS: SODIUM CHLORIDE 0.9% FLUSH 10 ML FLUSH IV FLUSH SCH ×2 (08:37→21:00)
[2017-04-04] MEDS: DOCUSATE SODIUM 50 MG/SENNA 8.6 MG TAB PO SCH ×2 (08:37→21:00)
[2017-04-04] MEDS: D5-1/2 NS + KCL 20 MEQ INJ 1,000 ML IV SCH ×2 (09:00→17:42)
--- NOTE | 2017-04-04 09:24 | HHI.PR ---
Subjective Subjective Notes He states he feels much better this morning. Denies nausea or pain, however when I lay his bed flat he does have abdominal pain. Has not required any narcotics. HR stable in 90s primarily. WBC 12. Objective Vitals/I&O Vital Signs Date Time Temp Pulse Resp B/P (MAP) Pulse Ox O2 Delivery O2 Flow Rate FiO2 04/04/17 08:00 85 04/04/17 07:31 98.7 18 115/58 (77) 92 04/03/17 21:00 Nasal Cannula 4.00 Labs Laboratory Tests Test 04/03/17 17:30 04/03/17 18:00 04/03/17 20:20 04/04/17 02:56 White Blood Count 10.2 12.4 Red Blood Count 4.60 4.06 Hemoglobin 13.9 12.8 Hematocrit 41.5 36.4 Mean Corpuscular Volume 90.4 89.7 Mean Corpuscular Hemoglobin 30.4 31.6 Mean Corpuscular Hemoglobin Concent 33.6 35.2 Red Cell Distribution Width 12.6 13.2 Platelet Count 165 143 Mean Platelet Volume 8.9 8.9 Neutrophils (%) (Auto) 90.2 89.8 Lymphocytes (%) (Auto) 3.8 4.6 Monocytes (%) (Auto) 5.6 5.5 Eosinophils (%) (Auto) 0.1 0.0 Basophils (%) (Auto) 0.3 0.1 Neutrophils # (Auto) 9.2 11.2 Lymphocytes # (Auto) 0.4 0.6 Monocytes # (Auto) 0.6 0.7 Eosinophils # (Auto) 0.0 0.0 Basophils # (Auto) 0.0 0.0 CBC Comment DIFF FINAL DIFF FINAL Differential Comment Blood Urea Nitrogen 9 10 Creatinine 0.98 0.75 Random Glucose 183 247 Total Protein 6.9 Albumin 3.7 Calcium Level 8.0 7.6 Alkaline Phosphatase 84 Aspartate Amino Transf (AST/SGOT) 20 Alanine Aminotransferase (ALT/SGPT) 30 Total Bilirubin 0.4 Sodium Level 138 139 Potassium Level 3.7 4.1 Chloride Level 105 106 Carbon Dioxide Level 25.3 25.0 Anion Gap 8 8 Estimat Glomerular Filtration Rate 75 103 Lipase 55 Prothrombin Time 11.2 Prothromb Time International Ratio 1.1 Activated Partial Thromboplast Time 25.0 D-Dimer Quantitative (PE/DVT) 1.14 Lactic Acid Level 2.4 1.3 Test 04/04/17 03:20 Urine Color YELLOW Urine Turbidity CLEAR Urine pH 6.0 Urine Specific [place] GREATER THAN 1.050 Urine Protein TRACE Urine Glucose (UA) 300 Urine Ketones 80 Urine Occult Blood NEG Urine Nitrite NEG Urine Bilirubin NEG Urine Urobilinogen LESS THAN 2.0 Urine Leukocyte Esterase NEG Urine RBC 1 Urine WBC 1 Urine Mucus FEW Microscopic Urinalysis Comment CULT NOT INDICATED Date/Time Source Procedure Growth Status 04/03/17 20:30 Blood Peripheral Aerobic Blood Culture Pending Received 04/03/17 20:30 Blood Peripheral Anaerobic Blood Culture Pending Received Radiology Last Impressions Chest X-Ray 04/03/171758 Signed Impressions: Service Date/Time: Monday, April 03, 2017 18:08 - CONCLUSION: The lungs are clear. No acute findings. Wesly Granda MD CT Angiography 04/03/171756 Signed Impressions: Service Date/Time: Monday, April 03, 2017 19:06 - CONCLUSION: 1. There is very limited visualization of the upper abdomen. This demonstrates some punctate collections of free air. CT imaging of the abdomen and pelvis would be warranted for further assessment. 2. No pulmonary embolus identified. 3. Atelectatic changes in the lung bases. 4. 6 mm calcified granuloma in the right lower lobe. Gulhsan Carson MD Abdomen/Pelvis CT 04/03/171756 Signed Impressions: Service Date/Time: Monday, April 03, 2017 19:06 - CONCLUSION: 1. There is free intraperitoneal air. 2. There is a dilated loop filled appendix. There is some subtle inflammatory change around this. This would suggest possible appendicitis. Gulshan Carson MD Narrative Exam No distress, comfortable in bed CV: HR 90s Abd: mild distention, moderate LLQ ttp, severe RLQ ttp with + rebound A/P Assessment and Plan 71 yo M s/p EMR polypectomy of 3cm polyp at appendiceal orifice yesterday with post procedure pneumoperitoneum. He feels better. Still has mild tachycardia, leukocytosis, localized peritonitis. Will continue to monitor closely. Recheck labs in am. Keep NPO. Continue IV antibiotics. Charly Cabrera MD Apr 04, 2017 09:24
[2017-04-04] MEDS: ONDANSETRON HCL 4 MG/2 ML VIAL IVP PRN ×2 (17:42→23:11)
[2017-04-04] MEDS: LEVOFLOXACIN 750 MG PREMIX INJ 150 ML IV SCH (21:12)
[2017-04-05] VITALS (17 sets, daily range): BP systolic 97–112; BP diastolic 55–60; PULSE 78–89; RESP 19–20; TEMP 97.9–98.5; O2SAT 93–97
[2017-04-05] MEDS: SODIUM CHLOR 0.9% 1000 ML INJ 1,000 ML IV SCH ×2 (03:25→13:25)
[2017-04-05] MEDS: INSULIN ASPART SUPPLEMENTAL SCALE SQ SCH ×4 (03:43→20:00)
[2017-04-05] MEDS: metroNIDAZOLE 500 MG INJ 100 ML IV SCH ×4 (03:43→20:58)
[2017-04-05 04:33] LABS: AUTOMATED NEUTROPHIL # 12.4 TH/MM3 (1.8-7.7); BASOPHIL % 0.1 % (0.0-2.0); EOSINOPHIL % 0.1 % (0.0-4.0); HEMATOCRIT 36.1 % (39.0-51.0); HEMOGLOBIN 12.8 GM/DL (13.0-17.0); LYMPH % 5.5 % (9.0-44.0); LYMPHOCYTE # 0.8 TH/MM3 (1.0-4.8); MEAN CORPUSCULAR HEMOGLOBIN 31.5 PG (27.0-34.0); MEAN CORPUSCULAR HGB CONC 35.4 % (32.0-36.0); MONO % 4.3 % (0.0-8.0); MONOCYTE # 0.6 TH/MM3 (0-0.9); PLATELET COUNT 138 TH/MM3 (150-450); RED BLOOD COUNT 4.06 MIL/MM3 (4.50-5.90); RED CELL DISTRIBUTION WIDTH 13.5 % (11.6-17.2); WHITE BLOOD COUNT 13.8 TH/MM3 (4.0-11.0)
[2017-04-05 04:52] LABS: ALBUMIN 2.5 GM/DL (3.4-5.0); ALT (GPT) 17 U/L (12-78); AST (GOT) 15 U/L (15-37); BICARBONATE 27.3 MEQ/L (21.0-32.0); BLOOD UREA NITROGEN 14 MG/DL (7-18); CALCIUM 7.8 MG/DL (8.5-10.1); CHLORIDE 107 MEQ/L (98-107); CREATININE 0.83 MG/DL (0.60-1.30); GLOMERULAR FILTRATION RATE 91 ML/MIN (>89); GLUCOSE,RANDOM 133 MG/DL (74-106); SODIUM (NA) 140 MEQ/L (136-145)
[2017-04-05 04:55] LABS: ALKALINE PHOSPHATASE 75 U/L (45-117); TOTAL BILIRUBIN ADULT 0.5 MG/DL (0.2-1.0); TOTAL PROTEIN 5.5 GM/DL (6.4-8.2)
--- NOTE | 2017-04-05 07:59 | HHI.PR ---
Subjective Subjective Notes States he had a bad day yesterday, primarily due to blood sugars being elevated. He asks whether we should proceed to surgery, or repeat a CT. Pain is about the same. UOP overnight was low. Objective Vitals/I&O Vital Signs Date Time Temp Pulse Resp B/P (MAP) Pulse Ox O2 Delivery O2 Flow Rate FiO2 04/05/17 07:00 98.1 84 20 104/57 (73) 93 04/03/17 21:00 Nasal Cannula 4.00 Labs Laboratory Tests Test 04/05/17 04:14 White Blood Count 13.8 Red Blood Count 4.06 Hemoglobin 12.8 Hematocrit 36.1 Mean Corpuscular Volume 89.0 Mean Corpuscular Hemoglobin 31.5 Mean Corpuscular Hemoglobin Concent 35.4 Red Cell Distribution Width 13.5 Platelet Count 138 Mean Platelet Volume 9.0 Neutrophils (%) (Auto) 90.0 Lymphocytes (%) (Auto) 5.5 Monocytes (%) (Auto) 4.3 Eosinophils (%) (Auto) 0.1 Basophils (%) (Auto) 0.1 Neutrophils # (Auto) 12.4 Lymphocytes # (Auto) 0.8 Monocytes # (Auto) 0.6 Eosinophils # (Auto) 0.0 Basophils # (Auto) 0.0 CBC Comment DIFF FINAL Differential Comment Blood Urea Nitrogen 14 Creatinine 0.83 Random Glucose 133 Total Protein 5.5 Albumin 2.5 Calcium Level 7.8 Alkaline Phosphatase 75 Aspartate Amino Transf (AST/SGOT) 15 Alanine Aminotransferase (ALT/SGPT) 17 Total Bilirubin 0.5 Sodium Level 140 Potassium Level 3.7 Chloride Level 107 Carbon Dioxide Level 27.3 Anion Gap 6 Estimat Glomerular Filtration Rate 91 Date/Time Source Procedure Growth Status 04/03/17 20:30 Blood Peripheral Aerobic Blood Culture - Preliminary NO GROWTH IN 1 DAY Resulted 04/03/17 20:30 Blood Peripheral Anaerobic Blood Culture - Preliminary NO GROWTH IN 1 DAY Resulted Radiology Last Impressions Chest X-Ray 04/03/17 3465 Signed Impressions: Service Date/Time: Monday, April 03, 2017 18:08 - CONCLUSION: The lungs are clear. No acute findings. Wesly Granda MD CT Angiography 04/03/171756 Signed Impressions: Service Date/Time: Monday, April 03, 2017 19:06 - CONCLUSION: 1. There is very limited visualization of the upper abdomen. This demonstrates some punctate collections of free air. CT imaging of the abdomen and pelvis would be warranted for further assessment. 2. No pulmonary embolus identified. 3. Atelectatic changes in the lung bases. 4. 6 mm calcified granuloma in the right lower lobe. Gulshan Carson MD Abdomen/Pelvis CT 04/03/171756 Signed Impressions: Service Date/Time: Monday, April 03, 2017 19:06 - CONCLUSION: 1. There is free intraperitoneal air. 2. There is a dilated loop filled appendix. There is some subtle inflammatory change around this. This would suggest possible appendicitis. Gulshan Carson MD Narrative Exam No distress, comfortable in bed CV: HR 80s Abd: significant distention, severe RLQ ttp with + rebound although slightly improved from yesterday A/P Assessment and Plan 71 yo M s/p EMR polypectomy of 3cm polyp at appendiceal orifice 04/03/17 with post procedure pneumoperitoneum. Pain a little better but he is more distended and WBC remains elevated. I will repeat a CT a/p today. Give 500cc NS bolus due to low UOP. Repeat labs in am. Charly Cabrera MD Apr 05, 2017 07:59
[2017-04-05] MEDS ORDERED: SODIUM CHLORID 0.9% 500 ML INJ 500 ML IV ONE (08:00)
[2017-04-05] MEDS: ONDANSETRON HCL 4 MG/2 ML VIAL IVP PRN (08:31)
[2017-04-05] MEDS: DOCUSATE SODIUM 50 MG/SENNA 8.6 MG TAB PO SCH ×2 (08:31→21:00)
[2017-04-05] MEDS: SODIUM CHLORIDE 0.9% FLUSH 10 ML FLUSH IV FLUSH SCH ×2 (08:39→20:58)
[2017-04-05] MEDS ORDERED: DIATRIZOATE MEGLUM/DIATRIZOATE SOD 9 ML CUP PO ONE (08:45)
[2017-04-05] MEDS: D5-1/2 NS + KCL 20 MEQ INJ 1,000 ML IV SCH ×2 (09:50→21:15)
[2017-04-05] MEDS ORDERED: DEXAMETHASONE SOD PHOS 4 MG/ML VIAL IV ONE (12:00)
[2017-04-05] MEDS ORDERED: ONDANSETRON HCL 4 MG/2 ML VIAL IV ONE (12:00)
[2017-04-05] MEDS ORDERED: PROPOFOL 200 MG/20 ML AMP IV ONE (12:00)
[2017-04-05] MEDS ORDERED: ROCURONIUM INJ 50 MG/5 ML SYRINGE IV PUSH ONE (12:00)
[2017-04-05] MEDS ORDERED: GLYCOPYRROLATE 1 MG/5 ML SYRINGE IV PUSH ONE (12:00)
[2017-04-05] MEDS ORDERED: SUCCINYLCHOLINE CHLORIDE 200 MG/10 ML VIAL IV ONE (12:00)
[2017-04-05] MEDS ORDERED: NEOSTIGMINE 5 MG/5 ML SYRINGE IV PUSH ONE (12:00)
[2017-04-05] MEDS ORDERED: METOPROLOL TARTRATE 5 MG/5 ML VIAL IV ONE (12:00)
[2017-04-05] MEDS ORDERED: LIDOCAINE HCL 1% PF 5 ML SYRINGE OTHER ONE (12:00)
[2017-04-05] MEDS ORDERED: PHENYLEPH/NS 1000 MCG/10 ML SYR IV ONE (12:00)
--- NOTE | 2017-04-05 12:43 | HHI.PR ---
Subjective Remarks Increased distention without significant increase in abdominal pain in patient today. He does have nausea and vomiting this morning. No fevers. There is a slight upward trend in white blood cell count. Objective Vital Signs Date Time Temp Pulse Resp B/P (MAP) Pulse Ox O2 Delivery O2 Flow Rate FiO2 04/05/17 12:00 86 04/05/17 11:00 82 04/05/17 11:00 98.5 85 20 109/60 (76) 94 04/05/17 10:00 86 04/05/17 09:00 85 04/05/17 08:00 88 04/05/17 07:00 98.1 84 20 104/57 (73) 93 04/05/17 07:00 85 04/05/17 06:19 82 04/05/17 05:48 85 04/05/17 04:19 88 04/05/17 03:21 87 04/05/17 03:20 98.0 84 20 97/55 (69) 93 04/05/17 02:08 88 04/05/17 01:30 89 04/05/17 00:19 85 04/04/17 23:40 98.1 80 19 110/53 (72) 94 04/04/17 23:40 90 04/04/17 22:18 88 04/04/17 21:30 90 04/04/17 20:04 85 04/04/17 19:20 98.0 85 18 107/55 (72) 93 04/04/17 19:00 84 04/04/17 18:00 93 04/04/17 17:00 93 04/04/17 16:00 93 04/04/17 15:00 96 04/04/17 15:00 98.7 99 18 120/58 (78) 92 04/04/17 14:00 93 04/04/17 13:00 90 I/O 04/04/17 04/04/17 04/04/17 04/05/17 04/05/17 04/05/17 07:00 15:00 23:00 07:00 15:00 23:00 Intake Total 754 ml 0 ml 0 ml Output Total 650 ml 200 ml 50 ml Balance 104 ml -200 ml -50 ml Intake Oral 0 ml 0 ml IV Total 754 ml Output Urine Total 650 ml 200 ml 50 ml # Voids 1 1 # Bowel Movements 0 Result Diagram: 2/23/18 0414 04/05/174 Objective Remarks GENERAL: NAD, A&Ox3 HEAD: Normocephalic. NECK: Supple, trachea midline. No lymphadenopathy. EYES: No scleral icterus. No injection or drainage. CARDIOVASCULAR: Regular rate and rhythm without murmurs, gallops, or rubs. RESPIRATORY: Breath sounds equal bilaterally. No accessory muscle use. GASTROINTESTINAL: Nontender abdomen. Distention is present with hypoactive bowel sounds. MUSCULOSKELETAL: No cyanosis, or edema. SKIN: Warm and dry. NEURO: No focal neurological deficitis. A/P Problem List: (1) Bowel perforation ICD Code: K63.1 - Perforation of intestine (nontraumatic) (2) Pneumoperitoneum ICD Code: K66.8 - Other specified disorders of peritoneum (3) Type 1 diabetes mellitus ICD Code: E10.9 - Type 1 diabetes mellitus without complications Status: Chronic Assessment and Plan 71-year-old male admitted secondary to pneumoperitoneum Pneumoperitoneum Bowel perforation Surgeon following Plan is for repeat CT today Continue to monitor CBC Continue Levaquin and Flagyl Monitor for any signs of sepsis Nothing by mouth IV hydration Diabetes mellitus type 1 Continue basal dosing with patient's own insulin pump Follow blood sugars Insulin sliding scale Nothing by mouth for now DVT prophylaxis SCDs Gulshan Messina MD Apr 05, 2017 12:43
--- NOTE | 2017-04-05 13:26 | RADRPT ---
EXAM DATE/TIME: 04/05/2017 12:58 [place] COMPARISON: CT ABDOMEN & PELVIS W CONTRAST, April 03, 2017, 19:06. INDICATIONS : perforation after polypectomy. IV CONTRAST: 100 cc Omnipaque 350 (iohexol) IV ORAL CONTRAST: No oral contrast ingested. RADIATION DOSE: 15.45 CTDIvol (mGy) MEDICAL HISTORY : Cardiovascular disease. Diabetes SURGICAL HISTORY : None. ENCOUNTER: Initial ACUITY: 1 day PAIN SCALE: 6/10 LOCATION: abdomen TECHNIQUE: Volumetric scanning of the abdomen and pelvis was performed. Using automated exposure control and adjustment of the mA and/or kV according to patient size, radiation dose was kept as low as reasonably achievable to obtain optimal diagnostic quality images. DICOM format image data is av ailable electronically for review and comparison. FINDINGS: Increasing amount of basilar atelectasis or consolidation in the right lower lung, now measuring almo st 2 cm in thickness with air bronchograms. Minimal left basilar atelectasis is also more prominent. Calcified granuloma lower lateral right lung measuring 5 mm is stable. There is some free intraperitoneal gas in the nondependent portion of the abdomen with the largest co llection below the umbilicus. There also a few scattered small bubbles of gas in the intraperitoneum . When compared to 04/03/17, the amount of free air has decreased. Multiple gas-distended loops of small bowel are present throughout the abdomen, measuring up to 3.7 c m in dimension. The gaseous distention is a new finding compared to the prior examination. Special attention directed to the appendix which measures up to 1.8 cm in width. There is induration of the fat about the appendix, slightly more prominent than on the prior examination. Another new f inding since the prior examination a focal collection of extraluminal gas adjacent to the appendix; t his is best seen on image #57 stopped The liver, spleen, kidneys, pancreas, aorta, adrenal glands, and gallbladder are intact. No evidence of free fluid in the pelvis. Urinary bladder margins are smooth., CONCLUSION: 1. The appendix remains prominent, measuring up to 1.8 cm, and there is increased angulation of the f at about the appendix and in the right lower quadrant. There is also interval development of focal e xtraluminal air in the space between the appendix and cecum; this suggests possible rupture of the ap pendix. 2. Interval development of diffuse gaseous distended loops of small bowel suggesting ileus. 3. The amount of free intraperitoneal gas seen in the nondependent portion of the abdomen and about t he liver has decreased compared to 04/03/17. 4. Interval development of mild ascites about the liver and tracking to the root of the mesentery. There is also increasing atelectasis or consolidation in the right lower lung.. Wesly Granda MD on April 05, 2017 at 13:13 Board Certified Radiologist. This report was verified electronically.
[2017-04-05] MEDS ORDERED: MIDAZOLAM HCL 2 MG/2 ML VIAL ONE (14:19)
[2017-04-05] MEDS ORDERED: fentaNYL CITRATE 250 MCG/5 ML AMP ONE ×2 (14:19→15:11)
[2017-04-05] MEDS ORDERED: BUPIVACAINE/EPINEPHRINE 0.25% 50 ML VIAL ONE (14:38)
--- NOTE | 2017-04-05 17:05 | PD.OP ---
cc: Charly Cabrera MD Operative Report Date of Surgery: Apr 05, 2017 Preoperative Diagnosis: (1) Bowel perforation Postoperative Diagnosis: (1) Bowel perforation Procedure: Diagnostic laparoscopy, laparoscopic appendectomy, washout, drain placement Anesthesia: GETA Surgeon: Charly Cabrera [employer] Operator(s): Staff Operation and Findings: EBL: 10cc Operative findings: Gross contamination in the right lower quadrant. The appendix had been transected at its base with leakage from the appendiceal orifice. The appendiceal stump and small portion of the cecum were soft and healthy and able to be removed using the stapler. Procedure in detail: The patient was taken to the operating room placed in supine position. General endotracheal anesthesia was induced and the abdomen was prepped and draped in usual sterile fashion. Surgical timeout was performed to verify correct patient procedure and site. Local anesthetic was injected in the skin and subcutaneous tissue in the left lower abdomen and a 5 mm incision made. The Optiview 5mm trocar and the laparoscope were used to directly enter the abdomen which was insufflated to 15 mmHg with CO2 gas of patient the patient tolerated well. A 12 mm port was placed in the left midabdomen and a 5 mm port in the left upper abdomen. Attention was turned to the right lower quadrant. The patient was placed in reverse Trendelenburg and turned slightly to the left. There was gross contamination and quite a bit of inflammation in the right lower quadrant. The appendix was able to be identified. It was inflamed and dilated. After carefully dissecting the appendix away from cecum and surrounding structures it was evident that the appendix was fully transected at its base. There was leakage from the cecum via the appendiceal orifice. The appendix was holding on by a portion of the mesoappendix and this was divided with the harmonic scalpel. The cecum was partially mobilized carefully using the harmonic scalpel. Cecum was soft and healthy in the laparoscopic echelon blue load stapler was used to come across the cecum taken the base the appendix and a small portion of the cecum. 2 loads were required. The appendix and the cecal side were both removed using an Endo Catch bag. The right lower quadrant was copiously irrigated as well as the pelvis and the right upper quadrant. A 19 [place] round drain was placed through a separate stab incision in the right lower abdomen down in the right paracolic gutter into the pelvis and secured in place with 3-0 nylon. The abdomen was allowed to desufflate and trochars were removed. The 12 mm fascial site was closed with 0 Vicryl suture and skin closed with subcuticular 4-0 Monocryl and Dermabond. The patient tolerated the procedure well and was extubated and taken to PACU in stable condition. Charly Cabrera MD Apr 05, 2017 17:05
[2017-04-05] MEDS ORDERED: SUGAMMADEX SODIUM 200 MG/2 ML VIAL IV PUSH ONE (17:13)
[2017-04-05] MEDS ORDERED: MORPHINE SULFATE 2 MG/ML INJ IV PUSH PRN (17:15)
[2017-04-05] MEDS ORDERED: DO NOT ADM ANY ANTICOAGULANT DRUGS PRN (17:25)
[2017-04-05] MEDS ORDERED: *RESP: ALBUTEROL 2.5 MG/3 ML NEB (PRN) PERIprocedural Use ONLY NEB ONE (17:38)
[2017-04-05] MEDS ORDERED: D5-1/2 NS + KCL 20 MEQ INJ 1,000 ML ONE (17:49)
[2017-04-05] MEDS ORDERED: MORPHINE SULFATE 4 MG/ML INJ IV PRN (18:00)
[2017-04-05] MEDS: KETOROLAC TROMETHAMINE 30 MG/ML (IVP) VIAL IV PUSH SCH (18:00)
[2017-04-05] MEDS ORDERED: DIMETHICONE/OXYBENZONE/PADMIATE LIP BALM 4.25 GM TOPICAL ONE (18:04)
[2017-04-05] MEDS ORDERED: FUROSEMIDE 20 MG/2 ML VIAL IV PUSH ONE (18:30)
[2017-04-05] MEDS ORDERED: FUROSEMIDE 20 MG/2 ML VIAL ONE (18:38)
[2017-04-05] MEDS ORDERED: RESP: ALBUTEROL 2.5 MG/IPRATROPIUM 0.5 MG NEB (PRN) NEB (18:45)
[2017-04-05] MEDS: LEVOFLOXACIN 750 MG PREMIX INJ 150 ML IV SCH (20:57)
[2017-04-06] VITALS: BP 114/56; PULSE 82; RESP 19; TEMP 97.9; O2SAT 98
[2017-04-06] MEDS: KETOROLAC TROMETHAMINE 30 MG/ML (IVP) VIAL IV PUSH SCH ×4 (00:13→17:41)
[2017-04-06] MEDS: metroNIDAZOLE 500 MG INJ 100 ML IV SCH ×4 (03:58→22:00)
[2017-04-06] MEDS: INSULIN ASPART SUPPLEMENTAL SCALE SQ SCH ×6 (03:58→20:00)
[2017-04-06 04:00] VITALS: BP 100/55; PULSE 78; PULSE 82; RESP 19; TEMP 96.5; O2SAT 94
[2017-04-06 08:00] VITALS: BP 112/62; PULSE 90; RESP 18; TEMP 97.3; O2SAT 96
[2017-04-06] MEDS: D5-1/2 NS + KCL 20 MEQ INJ 1,000 ML IV SCH ×2 (08:39→17:41)
[2017-04-06] MEDS: SODIUM CHLORIDE 0.9% FLUSH 10 ML FLUSH IV FLUSH SCH ×2 (08:40→20:50)
[2017-04-06] MEDS: DOCUSATE SODIUM 50 MG/SENNA 8.6 MG TAB PO SCH ×2 (08:41→20:50)
--- NOTE | 2017-04-06 09:21 | HHI.PR ---
Subjective Remarks in no acute distress. denies pain. NG tube in place. no nausea or emesis. afebrile. d/w the RN and no acute issues over night. Objective Vitals Vital Signs Date Time Temp Pulse Resp B/P (MAP) Pulse Ox O2 Delivery O2 Flow Rate FiO2 04/06/17 08:00 97.3 90 18 112/62 (79) 96 04/06/17 04:00 96.5 82 19 100/55 (70) 94 04/06/17 04:00 78 04/06/17 00:00 97.9 82 19 114/56 (75) 98 04/05/17 20:00 97.9 84 19 112/55 (74) 97 04/05/17 20:00 Nasal Cannula 3.00 04/05/17 20:00 85 04/05/17 19:30 97.8 82 16 119/56 (77) 95 Nasal Cannula 2 04/05/17 19:00 80 16 119/56 (77) 95 Nasal Cannula 2 04/05/17 18:45 79 15 106/54 (71) 92 Nasal Cannula 4 04/05/17 18:30 76 15 114/59 (77) 92 Nasal Cannula 4 04/05/17 18:15 77 17 114/58 (76) 90 Nasal Cannula 4 04/05/17 18:00 77 15 121/58 (79) 92 Nasal Cannula 4 04/05/17 17:45 78 15 130/60 (83) 93 Nasal Cannula 4 04/05/17 17:22 97.1 81 15 101/56 (71) 92 Nasal Cannula 4 04/05/17 14:00 86 04/05/17 13:00 78 04/05/17 12:00 86 04/05/17 11:00 82 04/05/17 11:00 98.5 85 20 109/60 (76) 94 04/05/17 10:00 86 I/O 04/05/17 04/05/17 04/05/17 04/06/17 04/06/17 04/06/17 07:00 15:00 23:00 07:00 15:00 23:00 Intake Total 0 ml 600 ml 1625 ml 1160 ml Output Total 50 ml 1710 ml 620 ml 50 ml Balance -50 ml 600 ml -85 ml 540 ml -50 ml Intake Oral 0 ml 0 ml 160 ml IV Total 600 ml 1625 ml 1000 ml Output Urine Total 50 ml 1400 ml 350 ml Gastric Drainage Total 15 ml 200 ml Drainage Total 275 ml 70 ml 50 ml Estimated Blood Loss 20 ml # Voids 1 3 # Bowel Movements 1 0 Result Diagram: 04/05/17 0414 04/05/17 0414 Imaging Last Impressions Abdomen/Pelvis CT 04/05/17 0000 Signed Impressions: Service Date/Time: Wednesday, April 05, 2017 12:58 - CONCLUSION: 1. The appendix remains prominent, measuring up to 1.8 cm, and there is increased angulation of the fat about the appendix and in the right lower quadrant. There is also interval development of focal extraluminal air in the space between the appendix and cecum; this suggests possible rupture of the appendix. 2. Interval development of diffuse gaseous distended loops of small bowel suggesting ileus. 3. The amount of free intraperitoneal gas seen in the nondependent portion of the abdomen and about the liver has decreased compared to 04/03/17. 4. Interval development of mild ascites about the liver and tracking to the root of the mesentery. There is also increasing atelectasis or consolidation in the right lower lung.. Wesly Granda MD Chest X-Ray 04/03/171758 Signed Impressions: Service Date/Time: Monday, April 03, 2017 18:08 - CONCLUSION: The lungs are clear. No acute findings. Wesly Granda MD CT Angiography 04/03/171756 Signed Impressions: Service Date/Time: Monday, April 03, 2017 19:06 - CONCLUSION: 1. There is very limited visualization of the upper abdomen. This demonstrates some punctate collections of free air. CT imaging of the abdomen and pelvis would be warranted for further assessment. 2. No pulmonary embolus identified. 3. Atelectatic changes in the lung bases. 4. 6 mm calcified granuloma in the right lower lobe. Gulshan Carson MD Objective Remarks GENERAL: This is a well-nourished, well-developed patient, in no apparent distress. CARDIOVASCULAR: Regular rate and regular rhythm without murmurs, gallops, or rubs. RESPIRATORY: Clear to auscultation. Breath sounds equal bilaterally. No wheezes , rales, or rhonchi. GASTROINTESTINAL: Abdomen soft, non-tender, nondistended. drain in place. MUSCULOSKELETAL: Extremities without clubbing, cyanosis, or edema. NEURO: Alert & Oriented x4 to person, place, time, situation. Moves all ext x4 Procedures Diagnostic laparoscopy, laparoscopic appendectomy, washout, drain placement. Medications and IVs Inpatient Medications Acetaminophen (Tylenol) 650 mg Q4H PRN PO TEMP > 100.4; Start 04/03/17 at 21:30 Albuterol/ Ipratropium (Duoneb Neb) 1 ampule Q4HR NEB PRN NEB SHORTNESS OF BREATH; Start 04/05/17 at 18:45 Bisacodyl (Dulcolax Supp) 10 mg DAILY PRN RECTAL SEVERE CONSITIPATION; Start at 21:30 Dextrose (D50w (Vial) Inj) 50 ml UNSCH PRN IV PUSH HYPOGLYCEMIA-SEE COMMENTS; Start 04/04/17 at 02:45 Diatrizoate Meglum/ Diatrizoate Sod ( Gastroview Liq) 18 ml ONCE ONCE PO Last administered on 04/05/17at 08:45; Start 04/05/17 at 08:45; Stop 04/05/17 at 08:46; Status DC Furosemide (Lasix Inj) 10 mg NOW ONCE IV PUSH Last administered on 04/05/17at 18:30; Start 04/05/17 at 18:30; Stop 04/05/17 at 18:42; Status DC Glucagon (Glucagon Inj) 1 mg UNSCH PRN OTHER HYPOGLYCEMIA-SEE COMMENTS; Start 04/04/17 at 02:45 Insulin Aspart (NovoLOG SUPPLEMENTAL SCALE) 1 Q4HR SQ Last administered on 04/04at 06:03; Start 04/04/17 at 08:00 Ketorolac Tromethamine (Toradol Inj) 15 mg Q6HR IV PUSH Last administered on at 05:46; Start 04/05/17 at 18:00; Stop 04/07/17 at 17:59 Lactulose (Lactulose Liq) 30 ml DAILY PRN PO SEVERE CONSITIPATION; Start at 21:30 Levofloxacin/ Dextrose 150 ml @ 100 mls/hr Q24H IV Last administered on at 20:57; Start 04/04/17 at 21:00 Magnesium Hydroxide (Milk Of Magnesia Liq) 30 ml Q12H PRN PO Mild constipation ; Start 04/03/17 at 21:30 Metronidazole 100 ml @ 100 mls/hr Q6H IV Last administered on 04/06/17at 08:38 ; Start 04/04/17 at 04:00 Miscellaneous Information ALL NURSING DEPARTME... UNSCH PRN .XX SEE LABEL COMMENTS; Start 04/05/17 at 17:25; Stop 04/06/17 at 17:24 Morphine Sulfate (Morphine Inj) 2 mg Q4H PRN IV PUSH PAIN SCALE 3 TO 6; Start 04/05/17 at 17:15 Naloxone HCl (Narcan Inj) 0.4 mg UNSCH PRN IV PUSH SEE LABEL COMMENTS Last administered on 04/05/17at 12:38; Start 04/03/17 at 21:30 Ondansetron HCl (Zofran Inj) 4 mg Q6H PRN IVP NAUSEA OR VOMITING Last administered on 04/05/17 08:31; Start 04/03/17 at 21:30 Pantoprazole Sodium (Protonix Inj) 40 mg ONCE ONCE IV PUSH Last administered on 04/03/17at 18:15; Start 04/03/17 at 18:00; Stop 04/03/17 at 18:01; Status DC Piperacillin Sod/ Tazobactam Sod 100 ml @ 200 mls/hr ONCE ONCE IV ; Start at 20:00; Stop 04/03/17 at 20:16; Status DC Potassium Chloride/Dextrose/ Sod Cl 1,000 ml @ 100 mls/hr Q10H IV Last administered on 04/06/17at 08:39; Start 04/05/17 at 21:15 Senna/Docusate Sodium (Olya-Colace) 1 tab BID PO Last administered on at 08:31; Start 04/04/17 at 09:00 Sennosides (Senokot) 17.2 mg Q12H PRN PO Moderate constipation; Start 04/03/17 at 21:30 Sodium Chloride 500 ml @ 500 mls/hr BOLUS ONCE IV Last administered on at 08:00; Start 04/05/17 at 08:00; Stop 04/05/17 at 08:59; Status DC Sodium Chloride (NS Flush) 2 ml BID IV FLUSH Last administered on 04/05/17at 20: 58; Start 04/04/17 at 09:00 A/P Problem List: (1) Pneumoperitoneum ICD Code: K66.8 - Other specified disorders of peritoneum (2) Type 1 diabetes mellitus ICD Code: E10.9 - Type 1 diabetes mellitus without complications Status: Chronic Assessment and Plan Pneumoperitoneum Bowel perforation s/p Diagnostic laparoscopy, laparoscopic appendectomy, washout, drain placement Continue Levaquin and Flagyl Monitor for any signs of sepsis Nothing by mouth IV hydration surgery following. Diabetes mellitus type 1 Continue basal dosing with patient's own insulin pump Follow blood sugars Insulin sliding scale Nothing by mouth for now CAD- s/p CABG resume aspirin when ok with surgery- resume BB/ statin when able to take po. DVT prophylaxis Antonia Camarillo MD Apr 06, 2017 09:21
[2017-04-06 11:03] LABS: AUTOMATED NEUTROPHIL # 11.8 TH/MM3 (1.8-7.7); BASOPHIL % 0.1 % (0.0-2.0); EOSINOPHIL % 0.4 % (0.0-4.0); HEMATOCRIT 37.9 % (39.0-51.0); HEMOGLOBIN 13.1 GM/DL (13.0-17.0); LYMPHOCYTE # 0.9 TH/MM3 (1.0-4.8); MEAN CELL VOLUME 90.4 FL (80.0-100.0); MEAN CORPUSCULAR HEMOGLOBIN 31.3 PG (27.0-34.0); MEAN CORPUSCULAR HGB CONC 34.7 % (32.0-36.0); MEAN PLATELET VOLUME 9.3 FL (7.0-11.0); MONOCYTE # 0.7 TH/MM3 (0-0.9); NEUT % 87.5 % (16.0-70.0); PLATELET COUNT 143 TH/MM3 (150-450); RED BLOOD COUNT 4.19 MIL/MM3 (4.50-5.90); RED CELL DISTRIBUTION WIDTH 13.6 % (11.6-17.2); WHITE BLOOD COUNT 13.5 TH/MM3 (4.0-11.0)
[2017-04-06 11:23] LABS: ALBUMIN 2.2 GM/DL (3.4-5.0); AST (GOT) 14 U/L (15-37); BICARBONATE 27.3 MEQ/L (21.0-32.0); BLOOD UREA NITROGEN 18 MG/DL (7-18); CALCIUM 7.6 MG/DL (8.5-10.1); CHLORIDE 107 MEQ/L (98-107); CREATININE 0.77 MG/DL (0.60-1.30); GLOMERULAR FILTRATION RATE 100 ML/MIN (>89); GLUCOSE,RANDOM 94 MG/DL (74-106); SODIUM (NA) 140 MEQ/L (136-145)
[2017-04-06 11:26] LABS: ALKALINE PHOSPHATASE 85 U/L (45-117); ALT (GPT) 16 U/L (12-78); TOTAL BILIRUBIN ADULT 0.3 MG/DL (0.2-1.0); TOTAL PROTEIN 5.6 GM/DL (6.4-8.2)
[2017-04-06 12:00] VITALS: BP 119/62; PULSE 89; RESP 18; TEMP 96.8; O2SAT 97
[2017-04-06 16:00] VITALS: BP 103/50; PULSE 79; RESP 17; TEMP 96.6; O2SAT 96
--- NOTE | 2017-04-06 17:14 | HHI.PR ---
Subjective Subjective Notes pt comfortable no flatus no N/V Objective Vitals/I&O Vital Signs Date Time Temp Pulse Resp B/P (MAP) Pulse Ox O2 Delivery O2 Flow Rate FiO2 04/06/17 16:00 96.6 79 17 103/50 (67) 96 04/05/17 20:00 Nasal Cannula 3.00 Labs Laboratory Tests Test 04/06/17 10:14 White Blood Count 13.5 Red Blood Count 4.19 Hemoglobin 13.1 Hematocrit 37.9 Mean Corpuscular Volume 90.4 Mean Corpuscular Hemoglobin 31.3 Mean Corpuscular Hemoglobin Concent 34.7 Red Cell Distribution Width 13.6 Platelet Count 143 Mean Platelet Volume 9.3 Neutrophils (%) (Auto) 87.5 Lymphocytes (%) (Auto) 7.0 Monocytes (%) (Auto) 5.0 Eosinophils (%) (Auto) 0.4 Basophils (%) (Auto) 0.1 Neutrophils # (Auto) 11.8 Lymphocytes # (Auto) 0.9 Monocytes # (Auto) 0.7 Eosinophils # (Auto) 0.0 Basophils # (Auto) 0.0 CBC Comment DIFF FINAL Differential Comment Blood Urea Nitrogen 18 Creatinine 0.77 Random Glucose 94 Total Protein 5.6 Albumin 2.2 Calcium Level 7.6 Alkaline Phosphatase 85 Aspartate Amino Transf (AST/SGOT) 14 Alanine Aminotransferase (ALT/SGPT) 16 Total Bilirubin 0.3 Sodium Level 140 Potassium Level 4.1 Chloride Level 107 Carbon Dioxide Level 27.3 Anion Gap 6 Estimat Glomerular Filtration Rate 100 Date/Time Source Procedure Growth Status 04/03/17 20:30 Blood Peripheral Aerobic Blood Culture - Preliminary NO GROWTH IN 3 DAYS Resulted 04/03/17 20:30 Blood Peripheral Anaerobic Blood Culture - Preliminary NO GROWTH IN 3 DAYS Resulted Radiology Last Impressions Chest X-Ray 04/03/171758 Signed Impressions: Service Date/Time: Monday, April 03, 2017 18:08 - CONCLUSION: The lungs are clear. No acute findings. Wesly Granda MD CT Angiography 04/03/17 0518 Signed Impressions: Service Date/Time: Monday, April 03, 2017 19:06 - CONCLUSION: 1. There is very limited visualization of the upper abdomen. This demonstrates some punctate collections of free air. CT imaging of the abdomen and pelvis would be warranted for further assessment. 2. No pulmonary embolus identified. 3. Atelectatic changes in the lung bases. 4. 6 mm calcified granuloma in the right lower lobe. Gulshan Carson MD Abdomen/Pelvis CT 04/03/17 8621 Signed Impressions: Service Date/Time: Monday, April 03, 2017 19:06 - CONCLUSION: 1. There is free intraperitoneal air. 2. There is a dilated loop filled appendix. There is some subtle inflammatory change around this. This would suggest possible appendicitis. Gulshan Carson MD Abdomen: Post-op tenderness Extremities: Perfused Narrative Exam giorgio serosang Wound Wound : Wound Location: Abdomen Appearance: Clean & Dry A/P Assessment and Plan s/p appendectomy pt doing well cont npo till flatus ambulate Esa Lee MD Apr 06, 2017 17:14
[2017-04-06 20:00] VITALS: BP 98/53; PULSE 78; PULSE 97; RESP 16; TEMP 96; O2SAT 92
[2017-04-06] MEDS: LEVOFLOXACIN 750 MG PREMIX INJ 150 ML IV SCH (20:50)
[2017-04-07] VITALS (9 sets, daily range): BP systolic 99–133; BP diastolic 54–63; PULSE 65–92; RESP 16–18; TEMP 95.2–97.6; O2SAT 92–97
[2017-04-07] MEDS: D5-1/2 NS + KCL 20 MEQ INJ 1,000 ML IV SCH ×3 (03:15→22:13)
[2017-04-07] MEDS: metroNIDAZOLE 500 MG INJ 100 ML IV SCH ×4 (03:32→22:13)
[2017-04-07] MEDS: INSULIN ASPART SUPPLEMENTAL SCALE SQ SCH ×6 (03:40→19:42)
[2017-04-07] MEDS: KETOROLAC TROMETHAMINE 30 MG/ML (IVP) VIAL IV PUSH SCH ×3 (05:39→12:34)
[2017-04-07] MEDS: SODIUM CHLORIDE 0.9% FLUSH 10 ML FLUSH IV FLUSH SCH ×2 (08:45→19:47)
[2017-04-07] MEDS: DOCUSATE SODIUM 50 MG/SENNA 8.6 MG TAB PO SCH ×2 (08:49→19:48)
--- NOTE | 2017-04-07 10:12 | HHI.PR ---
Subjective Remarks in no acute distress. denies pain. no nausea or vomiting. afebrile. passing gas. overall doing fine. Objective Vitals Vital Signs Date Time Temp Pulse Resp B/P (MAP) Pulse Ox O2 Delivery O2 Flow Rate FiO2 04/07/17 08:30 97 21 04/07/17 08:00 97.6 90 16 116/62 (80) 94 04/07/17 04:00 96.7 92 18 113/63 (80) 92 04/07/17 00:00 Nasal Cannula 2.00 04/07/17 00:00 97.1 79 16 105/59 (74) 97 04/06/17 20:00 97 04/06/17 20:00 96.0 78 16 98/53 (68) 92 04/06/17 20:00 Nasal Cannula 2.00 04/06/17 16:00 96.6 79 17 103/50 (67) 96 04/06/17 12:00 96.8 89 18 119/62 (81) 97 I/O 04/06/17 04/06/17 04/06/17 04/07/17 04/07/17 04/07/17 07:00 15:00 23:00 07:00 15:00 23:00 Intake Total 1160 ml 1550 ml 886 ml 215 ml Output Total 620 ml 50 ml 960 ml 470 ml Balance 540 ml -50 ml 590 ml 416 ml 215 ml Intake Oral 160 ml 0 ml IV Total 1000 ml 1550 ml 886 ml 215 ml Output Urine Total 350 ml 500 ml 250 ml Gastric Drainage Total 200 ml 350 ml 100 ml Drainage Total 70 ml 50 ml 110 ml 120 ml # Bowel Movements 0 0 Result Diagram: 04/06/17 1014 04/06/17 1014 Imaging Last Impressions Abdomen/Pelvis CT 04/05/17 0000 Signed Impressions: Service Date/Time: Wednesday, April 05, 2017 12:58 - CONCLUSION: 1. The appendix remains prominent, measuring up to 1.8 cm, and there is increased angulation of the fat about the appendix and in the right lower quadrant. There is also interval development of focal extraluminal air in the space between the appendix and cecum; this suggests possible rupture of the appendix. 2. Interval development of diffuse gaseous distended loops of small bowel suggesting ileus. 3. The amount of free intraperitoneal gas seen in the nondependent portion of the abdomen and about the liver has decreased compared to 04/03/17. 4. Interval development of mild ascites about the liver and tracking to the root of the mesentery. There is also increasing atelectasis or consolidation in the right lower lung.. Wesly Granda MD Chest X-Ray 04/03/171758 Signed Impressions: Service Date/Time: Monday, April 03, 2017 18:08 - CONCLUSION: The lungs are clear. No acute findings. Wesly Granad MD CT Angiography 04/03/171756 Signed Impressions: Service Date/Time: Monday, April 03, 2017 19:06 - CONCLUSION: 1. There is very limited visualization of the upper abdomen. This demonstrates some punctate collections of free air. CT imaging of the abdomen and pelvis would be warranted for further assessment. 2. No pulmonary embolus identified. 3. Atelectatic changes in the lung bases. 4. 6 mm calcified granuloma in the right lower lobe. Gulshan Carson MD Objective Remarks GENERAL: This is a well-nourished, well-developed patient, in no apparent distress. CARDIOVASCULAR: Regular rate and regular rhythm without murmurs, gallops, or rubs. RESPIRATORY: Clear to auscultation. Breath sounds equal bilaterally. No wheezes , rales, or rhonchi. GASTROINTESTINAL: Abdomen soft, non-tender, nondistended. drain in place. MUSCULOSKELETAL: Extremities without clubbing, cyanosis, or edema. NEURO: Alert & Oriented x4 to person, place, time, situation. Moves all ext x4 Procedures Diagnostic laparoscopy, laparoscopic appendectomy, washout, drain placement. Medications and IVs Inpatient Medications Acetaminophen (Tylenol) 650 mg Q4H PRN PO TEMP > 100.4; Start 04/03/17 at 21:30 Albuterol/ Ipratropium (Duoneb Neb) 1 ampule Q4HR NEB PRN NEB SHORTNESS OF BREATH; Start 04/05/17 at 18:45 Bisacodyl (Dulcolax Supp) 10 mg DAILY PRN RECTAL SEVERE CONSITIPATION; Start at 21:30 Dextrose (D50w (Vial) Inj) 50 ml UNSCH PRN IV PUSH HYPOGLYCEMIA-SEE COMMENTS; Start 04/04/17 at 02:45 Diatrizoate Meglum/ Diatrizoate Sod ( Gastroview Liq) 18 ml ONCE ONCE PO Last administered on 04/05/17at 08:45; Start 04/05/17 at 08:45; Stop 04/05/17 at 08:46; Status DC Furosemide (Lasix Inj) 10 mg NOW ONCE IV PUSH Last administered on 04/05/17at 18:30; Start 04/05/17 at 18:30; Stop 04/05/17 at 18:42; Status DC Glucagon (Glucagon Inj) 1 mg UNSCH PRN OTHER HYPOGLYCEMIA-SEE COMMENTS; Start 04/04/17 at 02:45 Insulin Aspart (NovoLOG SUPPLEMENTAL SCALE) 1 Q4HR SQ Last administered on 04/04at 06:03; Start 04/04/17 at 08:00 Ketorolac Tromethamine (Toradol Inj) 15 mg Q6HR IV PUSH Last administered on at 05:39; Start 04/05/17 at 18:00; Stop 04/07/17 at 17:59 Lactulose (Lactulose Liq) 30 ml DAILY PRN PO SEVERE CONSITIPATION; Start at 21:30 Levofloxacin/ Dextrose 150 ml @ 100 mls/hr Q24H IV Last administered on at 20:50; Start 04/04/17 at 21:00 Magnesium Hydroxide (Milk Of Magnesia Liq) 30 ml Q12H PRN PO Mild constipation ; Start 04/03/17 at 21:30 Metronidazole 100 ml @ 100 mls/hr Q6H IV Last administered on 04/07/17at 09:35 ; Start 04/04/17 at 04:00 Miscellaneous Information ALL NURSING DEPARTME... UNSCH PRN .XX SEE LABEL COMMENTS; Start 04/05/17 at 17:25; Stop 04/06/17 at 17:24; Status DC Morphine Sulfate (Morphine Inj) 2 mg Q4H PRN IV PUSH PAIN SCALE 3 TO 6; Start 04/05/17 at 17:15 Naloxone HCl (Narcan Inj) 0.4 mg UNSCH PRN IV PUSH SEE LABEL COMMENTS Last administered on 04/05/17at 12:38; Start 04/03/17 at 21:30 Ondansetron HCl (Zofran Inj) 4 mg Q6H PRN IVP NAUSEA OR VOMITING Last administered on 04/05/17at 08:31; Start 04/03/17 at 21:30 Pantoprazole Sodium (Protonix Inj) 40 mg ONCE ONCE IV PUSH Last administered on 04/03/17at 18:15; Start 04/03/17 at 18:00; Stop 04/03/17 at 18:01; Status DC Piperacillin Sod/ Tazobactam Sod 100 ml @ 200 mls/hr ONCE ONCE IV ; Start at 20:00; Stop 04/03/17 at 20:16; Status DC Potassium Chloride/Dextrose/ Sod Cl 1,000 ml @ 100 mls/hr Q10H IV Last administered on 04/07/17at 08:49; Start 04/05/17 at 21:15 Senna/Docusate Sodium (Olya-Colace) 1 tab BID PO Last administered on at 08:31; Start 04/04/17 at 09:00 Sennosides (Senokot) 17.2 mg Q12H PRN PO Moderate constipation; Start 04/03/17 at 21:30 Sodium Chloride 500 ml @ 500 mls/hr BOLUS ONCE IV Last administered on at 08:00; Start 04/05/17 at 08:00; Stop 04/05/17 at 08:59; Status DC Sodium Chloride (NS Flush) 2 ml BID IV FLUSH Last administered on 04/07/17at 08: 45; Start 04/04/17 at 09:00 A/P Problem List: (1) Pneumoperitoneum ICD Code: K66.8 - Other specified disorders of peritoneum (2) Type 1 diabetes mellitus ICD Code: E10.9 - Type 1 diabetes mellitus without complications Status: Chronic Assessment and Plan Pneumoperitoneum Bowel perforation s/p Diagnostic laparoscopy, laparoscopic appendectomy, washout, drain placement Continue Levaquin and Flagyl Monitor for any signs of sepsis diet per surgery. IV hydration surgery following. Diabetes mellitus type 1 Continue basal dosing with patient's own insulin pump Follow blood sugars Insulin sliding scale Nothing by mouth for now CAD- s/p CABG resume aspirin when ok with surgery- resume BB/ statin when able to take po. DVT prophylaxis SCDAntonia Koehler MD Apr 07, 2017 10:12
--- NOTE | 2017-04-07 11:29 | HHI.PR ---
Subjective Subjective Notes pt comfortable pos flatus no bm Objective Vitals/I&O Vital Signs Date Time Temp Pulse Resp B/P (MAP) Pulse Ox O2 Delivery O2 Flow Rate FiO2 04/07/17 08:30 97 21 04/07/17 08:00 97.6 90 16 116/62 (80) 04/07/17 00:00 Nasal Cannula 2.00 Labs Date/Time Source Procedure Growth Status 04/03/17 20:30 Blood Peripheral Aerobic Blood Culture - Preliminary NO GROWTH IN 4 DAYS Resulted 04/03/17 20:30 Blood Peripheral Anaerobic Blood Culture - Preliminary NO GROWTH IN 4 DAYS Resulted Radiology Last Impressions Chest X-Ray 04/03/171758 Signed Impressions: Service Date/Time: Monday, April 03, 2017 18:08 - CONCLUSION: The lungs are clear. No acute findings. Wesly Granda MD CT Angiography 04/03/171756 Signed Impressions: Service Date/Time: Monday, April 03, 2017 19:06 - CONCLUSION: 1. There is very limited visualization of the upper abdomen. This demonstrates some punctate collections of free air. CT imaging of the abdomen and pelvis would be warranted for further assessment. 2. No pulmonary embolus identified. 3. Atelectatic changes in the lung bases. 4. 6 mm calcified granuloma in the right lower lobe. Gulshan Carson MD Abdomen/Pelvis CT 04/03/171756 Signed Impressions: Service Date/Time: Monday, April 03, 2017 19:06 - CONCLUSION: 1. There is free intraperitoneal air. 2. There is a dilated loop filled appendix. There is some subtle inflammatory change around this. This would suggest possible appendicitis. Gulshan Carson MD Abdomen: Post-op tenderness Extremities: Perfused Narrative Exam giorgio serosang Wound Wound : Wound Location: Abdomen Appearance: Clean & Dry A/P Assessment and Plan s/p appendectomy pt doing well clear liquids d/c osuna ambulate Esa Lee MD Apr 07, 2017 11:29
[2017-04-07] MEDS: ONDANSETRON HCL 4 MG/2 ML VIAL IVP PRN (19:42)
[2017-04-07] MEDS: LEVOFLOXACIN 750 MG PREMIX INJ 150 ML IV SCH (19:42)
[2017-04-08] VITALS (11 sets, daily range): BP systolic 111–127; BP diastolic 55–89; PULSE 68–90; RESP 16–18; TEMP 96.6–98.9; O2SAT 91–98
[2017-04-08] MEDS: INSULIN ASPART SUPPLEMENTAL SCALE SQ SCH ×7 (04:00→23:33)
[2017-04-08] MEDS: metroNIDAZOLE 500 MG INJ 100 ML IV SCH ×4 (04:45→21:34)
[2017-04-08] MEDS ORDERED: FUROSEMIDE 20 MG/2 ML VIAL IV PUSH ONE (05:00)
--- NOTE | 2017-04-08 06:56 | RADRPT ---
EXAM DATE/TIME: 04/08/2017 05:34 [place] COMPARISON: CHEST SINGLE AP, April 03, 2017, 18:08. INDICATIONS : Congestion MEDICAL HISTORY : Cardiovascular disease. perforation after colonoscopy, diabetic SURGICAL HISTORY : CABG. perforated colon, lower extremity amputation ENCOUNTER: Subsequent ACUITY: 4 - 6 days PAIN SCORE: 0/10 LOCATION: Bilateral chest FINDINGS: Stable 5 mm granuloma in the right lung base. Minimal left basilar airspace disease. Cardiome some co ntours are stable. Remainder of the exam is unchanged. CONCLUSION: 1. Minimal left lung base airspace disease, likely atelectasis. 2. Otherwise, no significant interval change. Rio Powers MD on April 08, 2017 at 6:54 Board Certified Radiologist. This report was verified electronically.
[2017-04-08] MEDS: SODIUM CHLORIDE 0.9% FLUSH 10 ML FLUSH IV FLUSH SCH ×2 (09:00→19:48)
[2017-04-08] MEDS: DOCUSATE SODIUM 50 MG/SENNA 8.6 MG TAB PO SCH ×3 (09:00→19:48)
--- NOTE | 2017-04-08 11:41 | HHI.PR ---
Subjective Remarks in no acute distress. resting comfortably. tolerating the clear liquids. denies pain. no nausea/ vomiting. passing gas. no fever. Objective Vitals Vital Signs Date Time Temp Pulse Resp B/P (MAP) Pulse Ox O2 Delivery O2 Flow Rate FiO2 04/08/17 11:16 95 04/08/17 08:00 98.0 68 17 113/55 (74) 95 04/08/17 07:00 90 Nasal Cannula 2.00 04/08/17 04:46 Nasal Cannula 2.00 04/08/17 04:15 90 04/08/17 04:00 96.6 79 16 126/89 (101) 92 04/08/17 03:37 91 21 04/08/17 00:00 96.8 77 16 111/60 (77) 92 04/07/17 23:45 77 04/07/17 22:02 Room Air 04/07/17 20:00 97.2 65 16 99/54 (69) 93 04/07/17 19:20 74 04/07/17 16:00 96.0 86 16 133/61 (85) 95 04/07/17 12:00 89 04/07/17 12:00 95.2 90 16 120/58 (78) 96 I/O 04/07/17 04/07/17 04/07/17 04/08/17 04/08/17 04/08/17 07:00 15:00 23:00 07:00 15:00 23:00 Intake Total 886 ml 215 ml 1650 ml 200 ml Output Total 470 ml 305 ml 780 ml 400 ml 80 ml Balance 416 ml -90 ml 870 ml -200 ml -80 ml Intake Oral 500 ml IV Total 886 ml 215 ml 1150 ml 200 ml Output Urine Total 250 ml 275 ml 750 ml 350 ml Gastric Drainage Total 100 ml Drainage Total 120 ml 30 ml 30 ml 50 ml 80 ml # Bowel Movements 0 Result Diagram: 04/06/17 1014 04/06/17 1014 Imaging Last Impressions Abdomen/Pelvis CT 04/05/17 0000 Signed Impressions: Service Date/Time: Wednesday, April 05, 2017 12:58 - CONCLUSION: 1. The appendix remains prominent, measuring up to 1.8 cm, and there is increased angulation of the fat about the appendix and in the right lower quadrant. There is also interval development of focal extraluminal air in the space between the appendix and cecum; this suggests possible rupture of the appendix. 2. Interval development of diffuse gaseous distended loops of small bowel suggesting ileus. 3. The amount of free intraperitoneal gas seen in the nondependent portion of the abdomen and about the liver has decreased compared to 04/03/17. 4. Interval development of mild ascites about the liver and tracking to the root of the mesentery. There is also increasing atelectasis or consolidation in the right lower lung.. Wesly Granda MD Chest X-Ray 04/03/171758 Signed Impressions: Service Date/Time: Monday, April 03, 2017 18:08 - CONCLUSION: The lungs are clear. No acute findings. Wesly Granda MD CT Angiography 04/03/171756 Signed Impressions: Service Date/Time: Monday, April 03, 2017 19:06 - CONCLUSION: 1. There is very limited visualization of the upper abdomen. This demonstrates some punctate collections of free air. CT imaging of the abdomen and pelvis would be warranted for further assessment. 2. No pulmonary embolus identified. 3. Atelectatic changes in the lung bases. 4. 6 mm calcified granuloma in the right lower lobe. Gulshan Carson MD Objective Remarks GENERAL: This is a well-nourished, well-developed patient, in no apparent distress. CARDIOVASCULAR: Regular rate and regular rhythm without murmurs, gallops, or rubs. RESPIRATORY: Clear to auscultation. Breath sounds equal bilaterally. No wheezes , rales, or rhonchi. GASTROINTESTINAL: Abdomen soft, non-tender, nondistended. drain in place. MUSCULOSKELETAL: Extremities without clubbing, cyanosis, or edema. NEURO: Alert & Oriented x4 to person, place, time, situation. Moves all ext x4 Procedures Diagnostic laparoscopy, laparoscopic appendectomy, washout, drain placement. Medications and IVs Inpatient Medications Acetaminophen (Tylenol) 650 mg Q4H PRN PO TEMP > 100.4; Start 04/03/17 at 21:30 Albuterol/ Ipratropium (Duoneb Neb) 1 ampule Q4HR NEB PRN NEB SHORTNESS OF BREATH Last administered on 04/08/17at 03:36; Start 04/05/17 at 18:45 Bisacodyl (Dulcolax Supp) 10 mg DAILY PRN RECTAL SEVERE CONSITIPATION; Start at 21:30 Dextrose (D50w (Vial) Inj) 50 ml UNSCH PRN IV PUSH HYPOGLYCEMIA-SEE COMMENTS Last administered on 04/07/17at 20:13; Start 04/04/17 at 02:45 Diatrizoate Meglum/ Diatrizoate Sod ( Gastroview Liq) 18 ml ONCE ONCE PO Last administered on 04/05/17at 08:45; Start 04/05/17 at 08:45; Stop 04/05/17 at 08:46; Status DC Furosemide (Lasix Inj) 20 mg ONCE ONCE IV PUSH Last administered on 04/08/17at 05:04; Start 04/08/17 at 05:00; Stop 04/08/17 at 05:01; Status DC Glucagon (Glucagon Inj) 1 mg UNSCH PRN OTHER HYPOGLYCEMIA-SEE COMMENTS; Start 04/04/17 at 02:45 Insulin Aspart (NovoLOG SUPPLEMENTAL SCALE) 1 Q4HR SQ Last administered on 04/04at 06:03; Start 04/04/17 at 08:00 Ketorolac Tromethamine (Toradol Inj) 15 mg Q6HR IV PUSH Last administered on at 12:34; Start 04/05/17 at 18:00; Stop 04/07/17 at 17:59; Status DC Lactulose (Lactulose Liq) 30 ml DAILY PRN PO SEVERE CONSITIPATION; Start at 21:30 Levofloxacin/ Dextrose 150 ml @ 100 mls/hr Q24H IV Last administered on at 19:42; Start 04/04/17 at 21:00 Magnesium Hydroxide (Milk Of Magnesia Liq) 30 ml Q12H PRN PO Mild constipation ; Start 04/03/17 at 21:30 Metronidazole 100 ml @ 100 mls/hr Q6H IV Last administered on 04/08/17at 09:22 ; Start 04/04/17 at 04:00 Miscellaneous Information ALL NURSING DEPARTME... UNSCH PRN .XX SEE LABEL COMMENTS; Start 04/05/17 at 17:25; Stop 04/06/17 at 17:24; Status DC Morphine Sulfate (Morphine Inj) 2 mg Q4H PRN IV PUSH PAIN SCALE 3 TO 6; Start 04/05/17 at 17:15 Naloxone HCl (Narcan Inj) 0.4 mg UNSCH PRN IV PUSH SEE LABEL COMMENTS Last administered on 04/05/17at 12:38; Start 04/03/17 at 21:30 Ondansetron HCl (Zofran Inj) 4 mg Q6H PRN IVP NAUSEA OR VOMITING Last administered on 04/07/17at 19:42; Start 04/03/17 at 21:30 Pantoprazole Sodium (Protonix Inj) 40 mg ONCE ONCE IV PUSH Last administered on 04/03/17at 18:15; Start 04/03/17 at 18:00; Stop 04/03/17 at 18:01; Status DC Piperacillin Sod/ Tazobactam Sod 100 ml @ 200 mls/hr ONCE ONCE IV ; Start at 20:00; Stop 04/03/17 at 20:16; Status DC Potassium Chloride/Dextrose/ Sod Cl 1,000 ml @ 100 mls/hr Q10H IV Last administered on 04/07/17at 22:13; Start 04/05/17 at 21:15; Status Future Hold Senna/Docusate Sodium (Olya-Colace) 1 tab BID PO Last administered on at 08:31; Start 04/04/17 at 09:00 Sennosides (Senokot) 17.2 mg Q12H PRN PO Moderate constipation; Start 04/03/17 at 21:30 Sodium Chloride 500 ml @ 500 mls/hr BOLUS ONCE IV Last administered on at 08:00; Start 04/05/17 at 08:00; Stop 04/05/17 at 08:59; Status DC Sodium Chloride (NS Flush) 2 ml BID IV FLUSH Last administered on 04/07/17at 19: 47; Start 04/04/17 at 09:00 A/P Problem List: (1) Pneumoperitoneum ICD Code: K66.8 - Other specified disorders of peritoneum (2) Type 1 diabetes mellitus ICD Code: E10.9 - Type 1 diabetes mellitus without complications Status: Chronic Assessment and Plan Pneumoperitoneum Bowel perforation s/p Diagnostic laparoscopy, laparoscopic appendectomy, washout, drain placement Continue Levaquin and Flagyl diet per surgery. IV hydration surgery following. Diabetes mellitus type 1 Continue basal dosing with patient's own insulin pump Follow blood sugars Insulin sliding scale Nothing by mouth for now CAD- s/p CABG resume aspirin when ok with surgery- hold BB for now due to low-normal BP's. DVT prophylaxis SCDs Discharge Planning dc planning per general surgery. Antonia Brewer MD Apr 08, 2017 11:41
--- NOTE | 2017-04-08 12:22 | HHI.PR ---
Subjective Subjective Notes He feels really well today. + flatus, denies nausea. He accidentally removed ngt overnight. Tolerating clears. Objective Vitals/I&O Vital Signs Date Time Temp Pulse Resp B/P (MAP) Pulse Ox O2 Delivery O2 Flow Rate FiO2 04/08/17 12:00 97.6 88 17 111/56 (74) 93 04/08/17 07:00 Nasal Cannula 2.00 04/08/17 03:37 21 Labs Date/Time Source Procedure Growth Status 04/03/17 20:30 Blood Peripheral Aerobic Blood Culture - Final NO GROWTH IN 5 DAYS Complete 04/03/17 20:30 Blood Peripheral Anaerobic Blood Culture - Final NO GROWTH IN 5 DAYS Complete Radiology Last Impressions Chest X-Ray 04/03/171758 Signed Impressions: Service Date/Time: Monday, April 03, 2017 18:08 - CONCLUSION: The lungs are clear. No acute findings. Wesly Granda MD CT Angiography 04/03/171756 Signed Impressions: Service Date/Time: Monday, April 03, 2017 19:06 - CONCLUSION: 1. There is very limited visualization of the upper abdomen. This demonstrates some punctate collections of free air. CT imaging of the abdomen and pelvis would be warranted for further assessment. 2. No pulmonary embolus identified. 3. Atelectatic changes in the lung bases. 4. 6 mm calcified granuloma in the right lower lobe. Gulshan Carson MD Abdomen/Pelvis CT 04/03/171756 Signed Impressions: Service Date/Time: Monday, April 03, 2017 19:06 - CONCLUSION: 1. There is free intraperitoneal air. 2. There is a dilated loop filled appendix. There is some subtle inflammatory change around this. This would suggest possible appendicitis. Gulshan Carson MD Narrative Exam No distress Abd: significant distention, soft, inc c/d/i, giorgio cloudy output A/P Assessment and Plan 71 yo M s/p EMR polypectomy of 3cm polyp at appendiceal orifice 04/03/17 with post procedure pneumoperitoneum, POD 3 s/p lap appendectomy and washout. Doing well. Cont GIORGIO drain. Start fulls. Continue IV antibiotics. Check labs in am. Charly Cabrera MD Apr 08, 2017 12:22
[2017-04-08] MEDS: LEVOFLOXACIN 750 MG PREMIX INJ 150 ML IV SCH (19:48)
[2017-04-09] VITALS (8 sets, daily range): BP systolic 113–145; BP diastolic 56–69; PULSE 65–87; RESP 16–20; TEMP 97.8–99; O2SAT 93–100
[2017-04-09] MEDS: metroNIDAZOLE 500 MG INJ 100 ML IV SCH ×2 (02:58→08:52)
[2017-04-09] MEDS: INSULIN ASPART SUPPLEMENTAL SCALE SQ SCH ×5 (03:00→20:00)
[2017-04-09 07:42] LABS: AUTOMATED NEUTROPHIL # 6.1 TH/MM3 (1.8-7.7); BASOPHIL % 0.2 % (0.0-2.0); EOSINOPHIL # 0.2 TH/MM3 (0-0.4); EOSINOPHIL % 2.7 % (0.0-4.0); HEMATOCRIT 39.6 % (39.0-51.0); HEMOGLOBIN 13.7 GM/DL (13.0-17.0); LYMPH % 12.6 % (9.0-44.0); MEAN CELL VOLUME 89.6 FL (80.0-100.0); MEAN CORPUSCULAR HGB CONC 34.6 % (32.0-36.0); MONO % 7.1 % (0.0-8.0); MONOCYTE # 0.6 TH/MM3 (0-0.9); NEUT % 77.4 % (16.0-70.0); PLATELET COUNT 182 TH/MM3 (150-450); RED BLOOD COUNT 4.42 MIL/MM3 (4.50-5.90); RED CELL DISTRIBUTION WIDTH 13.4 % (11.6-17.2); WHITE BLOOD COUNT 7.9 TH/MM3 (4.0-11.0)
[2017-04-09 08:07] LABS: BICARBONATE 31.1 MEQ/L (21.0-32.0); CALCIUM 7.9 MG/DL (8.5-10.1); CREATININE 0.68 MG/DL (0.60-1.30)
[2017-04-09] MEDS: SODIUM CHLORIDE 0.9% FLUSH 10 ML FLUSH IV FLUSH SCH ×2 (08:51→20:59)
[2017-04-09] MEDS: DOCUSATE SODIUM 50 MG/SENNA 8.6 MG TAB PO SCH ×2 (08:51→20:59)
--- NOTE | 2017-04-09 10:54 | HHI.PR ---
Subjective Subjective Notes He feels "fantastic". Tolerating fulls. + flatus, no BM. Ambulated in halls a couple of times yesterday. Objective Vitals/I&O Vital Signs Date Time Temp Pulse Resp B/P (MAP) Pulse Ox O2 Delivery O2 Flow Rate FiO2 04/09/17 08:00 98.2 65 16 125/60 (81) 95 04/08/17 07:00 Nasal Cannula 2.00 04/08/17 03:37 21 Labs Laboratory Tests Test 04/09/17 06:20 White Blood Count 7.9 Red Blood Count 4.42 Hemoglobin 13.7 Hematocrit 39.6 Mean Corpuscular Volume 89.6 Mean Corpuscular Hemoglobin 31.0 Mean Corpuscular Hemoglobin Concent 34.6 Red Cell Distribution Width 13.4 Platelet Count 182 Mean Platelet Volume 9.0 Neutrophils (%) (Auto) 77.4 Lymphocytes (%) (Auto) 12.6 Monocytes (%) (Auto) 7.1 Eosinophils (%) (Auto) 2.7 Basophils (%) (Auto) 0.2 Neutrophils # (Auto) 6.1 Lymphocytes # (Auto) 1.0 Monocytes # (Auto) 0.6 Eosinophils # (Auto) 0.2 Basophils # (Auto) 0.0 CBC Comment DIFF FINAL Differential Comment Blood Urea Nitrogen 9 Creatinine 0.68 Random Glucose 127 Calcium Level 7.9 Sodium Level 140 Potassium Level 3.8 Chloride Level 103 Carbon Dioxide Level 31.1 Anion Gap 6 Estimat Glomerular Filtration Rate 115 Date/Time Source Procedure Growth Status 04/03/17 20:30 Blood Peripheral Aerobic Blood Culture - Final NO GROWTH IN 5 DAYS Complete 04/03/17 20:30 Blood Peripheral Anaerobic Blood Culture - Final NO GROWTH IN 5 DAYS Complete Radiology Last Impressions Chest X-Ray 04/03/171758 Signed Impressions: Service Date/Time: Monday, April 03, 2017 18:08 - CONCLUSION: The lungs are clear. No acute findings. Welsy Granda MD CT Angiography 04/03/171756 Signed Impressions: Service Date/Time: Monday, April 03, 2017 19:06 - CONCLUSION: 1. There is very limited visualization of the upper abdomen. This demonstrates some punctate collections of free air. CT imaging of the abdomen and pelvis would be warranted for further assessment. 2. No pulmonary embolus identified. 3. Atelectatic changes in the lung bases. 4. 6 mm calcified granuloma in the right lower lobe. Gulshan Carson MD Abdomen/Pelvis CT 04/03/17 5303 Signed Impressions: Service Date/Time: Monday, April 03, 2017 19:06 - CONCLUSION: 1. There is free intraperitoneal air. 2. There is a dilated loop filled appendix. There is some subtle inflammatory change around this. This would suggest possible appendicitis. Gulshan Carson MD Narrative Exam No distress Abd: distended, soft, inc c/d/i, giorgio cloudy output A/P Assessment and Plan 71 yo M s/p EMR polypectomy of 3cm polyp at appendiceal orifice 04/03/17 with post procedure pneumoperitoneum, POD 4 s/p lap appendectomy and washout. Doing well. Cont GIORGIO drain. Soft diet. WBC normalized. Change to PO antibiotics. D/c IVF. Anticipate dc home tomorrow. Will likely not need [facility] nursing. His will care for drain. RickCharly burton MD Apr 09, 2017 10:53
[2017-04-09] MEDS ORDERED: ACETAMINOPHEN/HYDROcodone 325 MG/5 MG TAB PO PRN (11:00)
[2017-04-09] MEDS ORDERED: MAGNESIUM HYDROXIDE SUSP 30 ML CUP PO ONE (11:00)
--- NOTE | 2017-04-09 15:47 | HHI.PR ---
Subjective Remarks Follow-up bowel perforation 04/09/17-patient seen and examined, denies any significant abdominal pain. Tolerated by mouth without any complication. Currently afebrile. White by the bedside. IND[place] drain with high output. Objective Vitals Vital Signs Date Time Temp Pulse Resp B/P (MAP) Pulse Ox O2 Delivery O2 Flow Rate FiO2 04/09/17 08:00 98.2 65 16 125/60 (81) 95 04/09/17 05:15 98.5 87 20 145/69 (94) 97 04/09/17 03:54 80 04/09/17 00:00 99.0 79 18 128/56 (80) 96 04/08/17 23:44 84 04/08/17 20:24 98.3 80 18 127/58 (81) 98 04/08/17 20:00 86 04/08/17 16:00 98.9 83 17 117/56 (76) 94 I/O 04/08/17 04/08/17 04/08/17 04/09/17 04/09/17 04/09/17 07:00 15:00 23:00 07:00 15:00 23:00 Intake Total 200 ml 2750 ml 680 ml 100 ml Output Total 400 ml 80 ml 985 ml 1790 ml 80 ml Balance -200 ml -80 ml 1765 ml -1110 ml 20 ml Intake Oral 2400 ml 580 ml IV Total 200 ml 350 ml 100 ml 100 ml Output Urine Total 350 ml 875 ml 1650 ml Drainage Total 50 ml 80 ml 110 ml 140 ml 80 ml # Bowel Movements 0 0 Result Diagram: 04/09/17 0620 04/09/17 0620 Imaging Last Impressions Chest X-Ray 04/08/17 0000 Signed Impressions: Service Date/Time: Saturday, April 08, 2017 05:34 - CONCLUSION: 1. Minimal left lung base airspace disease, likely atelectasis. 2. Otherwise, no significant interval change. Rio Powers MD Abdomen/Pelvis CT 04/05/17 0000 Signed Impressions: Service Date/Time: Wednesday, April 05, 2017 12:58 - CONCLUSION: 1. The appendix remains prominent, measuring up to 1.8 cm, and there is increased angulation of the fat about the appendix and in the right lower quadrant. There is also interval development of focal extraluminal air in the space between the appendix and cecum; this suggests possible rupture of the appendix. 2. Interval development of diffuse gaseous distended loops of small bowel suggesting ileus. 3. The amount of free intraperitoneal gas seen in the nondependent portion of the abdomen and about the liver has decreased compared to 04/03/17. 4. Interval development of mild ascites about the liver and tracking to the root of the mesentery. There is also increasing atelectasis or consolidation in the right lower lung.. Wesly Granda MD CT Angiography 04/03/17 4157 Signed Impressions: Service Date/Time: Monday, April 03, 2017 19:06 - CONCLUSION: 1. There is very limited visualization of the upper abdomen. This demonstrates some punctate collections of free air. CT imaging of the abdomen and pelvis would be warranted for further assessment. 2. No pulmonary embolus identified. 3. Atelectatic changes in the lung bases. 4. 6 mm calcified granuloma in the right lower lobe. Gulshan Carson MD Objective Remarks GENERAL: NAD SKIN: Warm and dry. HEAD: Normocephalic. EYES: No scleral icterus. No injection or drainage. NECK: Supple, trachea midline. No JVD or lymphadenopathy. CARDIOVASCULAR: Regular rate and rhythm without murmurs, gallops, or rubs. RESPIRATORY: Breath sounds equal bilaterally. No accessory muscle use. GASTROINTESTINAL: Abdomen soft, non-tender, nondistended. s/p lap appendectomy, IND[place] drain in place MUSCULOSKELETAL: No cyanosis, or edema. BACK: Nontender without obvious deformity. No CVA tenderness. Procedures Diagnostic laparoscopy, laparoscopic appendectomy, washout, drain placement. A/P Problem List: (1) Pneumoperitoneum ICD Code: K66.8 - Other specified disorders of peritoneum (2) Type 1 diabetes mellitus ICD Code: E10.9 - Type 1 diabetes mellitus without complications Status: Chronic Assessment and Plan 71-year-old man with Pneumoperitoneum Bowel perforation s/p Diagnostic laparoscopy, laparoscopic appendectomy, washout, drain placement Continue Levaquin and Flagyl Management per general surgery Diabetes mellitus type 1 Continue basal dosing with patient's own insulin pump Insulin sliding scale CAD- s/p CABG Resume aspirin Hypertension/lipidemia Resume outpatient medications DVT prophylaxis SCDs Discharge Planning Likely discharge in Naun Posada MD Apr 09, 2017 15:47
[2017-04-09] MEDS: metroNIDAZOLE 500 MG TAB PO SCH (17:08)
[2017-04-09] MEDS: METOPROLOL TARTRATE 25 MG TAB PO SCH (20:59)
[2017-04-09] MEDS ORDERED: PRAVASTATIN SOD 80 MG TAB PO SCH (21:00)
[2017-04-09] MEDS ORDERED: LEVOFLOXACIN 750 MG TAB PO SCH (21:00)
[2017-04-09] MEDS: CILOSTAZOL 100 MG TAB PO SCH (21:05)
[2017-04-09] MEDS: COLESEVELAM HCL 625 MG TAB PO SCH (21:05)
[2017-04-10] VITALS: BP 124/58; PULSE 67; RESP 18; TEMP 98.9; O2SAT 97
[2017-04-10 00:10] VITALS: PULSE 61
[2017-04-10] MEDS: metroNIDAZOLE 500 MG TAB PO SCH ×2 (01:27→08:52)
[2017-04-10] MEDS: INSULIN ASPART SUPPLEMENTAL SCALE SQ SCH ×4 (04:00→11:57)
[2017-04-10 04:44] VITALS: BP 117/61; PULSE 78; RESP 20; TEMP 98; O2SAT 98
[2017-04-10 08:00] VITALS: BP 108/65; PULSE 76; RESP 15; TEMP 97.7; O2SAT 93
[2017-04-10 08:50] VITALS: PULSE 65
[2017-04-10] MEDS: DOCUSATE SODIUM 50 MG/SENNA 8.6 MG TAB PO SCH (08:51)
[2017-04-10] MEDS: CILOSTAZOL 100 MG TAB PO SCH (08:52)
[2017-04-10] MEDS: METOPROLOL TARTRATE 25 MG TAB PO SCH (08:52)
[2017-04-10] MEDS: SODIUM CHLORIDE 0.9% FLUSH 10 ML FLUSH IV FLUSH SCH (08:52)
[2017-04-10] MEDS: COLESEVELAM HCL 625 MG TAB PO SCH (08:52)
[2017-04-10] MEDS ORDERED: ASPIRIN 325 MG TAB PO SCH (09:00)
[2017-04-10] MEDS ORDERED: METR-1 PO (11:05)
[2017-04-10] MEDS ORDERED: LEVA750T9 PO (11:05)
[2017-04-10 12:00] VITALS: BP 100/51; PULSE 77; RESP 14; TEMP 97.4; O2SAT 92
--- NOTE | 2017-04-10 12:14 | HHI.PR ---
Subjective Subjective Notes Tolerating soft diet. Multiple bowel movts. Objective Vitals/I&O Vital Signs Date Time Temp Pulse Resp B/P (MAP) Pulse Ox O2 Delivery O2 Flow Rate FiO2 04/10/17 08:50 65 04/10/17 08:50 93 Room Air 04/10/17 08:00 97.7 15 108/65 (79) 04/08/17 07:00 2.00 04/08/17 03:37 21 Labs Date/Time Source Procedure Growth Status 04/03/17 20:30 Blood Peripheral Aerobic Blood Culture - Final NO GROWTH IN 5 DAYS Complete 04/03/17 20:30 Blood Peripheral Anaerobic Blood Culture - Final NO GROWTH IN 5 DAYS Complete Radiology Last Impressions Chest X-Ray 04/03/171758 Signed Impressions: Service Date/Time: Monday, April 03, 2017 18:08 - CONCLUSION: The lungs are clear. No acute findings. Wesly Granda MD CT Angiography 04/03/171756 Signed Impressions: Service Date/Time: Monday, April 03, 2017 19:06 - CONCLUSION: 1. There is very limited visualization of the upper abdomen. This demonstrates some punctate collections of free air. CT imaging of the abdomen and pelvis would be warranted for further assessment. 2. No pulmonary embolus identified. 3. Atelectatic changes in the lung bases. 4. 6 mm calcified granuloma in the right lower lobe. Gulshan Carson MD Abdomen/Pelvis CT 04/03/171756 Signed Impressions: Service Date/Time: Monday, April 03, 2017 19:06 - CONCLUSION: 1. There is free intraperitoneal air. 2. There is a dilated loop filled appendix. There is some subtle inflammatory change around this. This would suggest possible appendicitis. Gulshan Carson MD Narrative Exam No distress Abd: mild distention, soft, inc c/d/i, giorgio clear serous output A/P Assessment and Plan 71 yo M s/p EMR polypectomy of 3cm polyp at appendiceal orifice 04/03/17 with post procedure pneumoperitoneum, POD 5 s/p lap appendectomy and washout. D/c home with drain. F/u Saturday. Oral antibiotics. Charly Cabrera MD Apr 10, 2017 12:14
--- NOTE | 2017-04-10 12:21 | HHI.PR ---
Subjective Remarks Follow-up bowel perforation 04/09/17-patient seen and examined, denies any significant abdominal pain. Tolerated by mouth without any complication. Currently afebrile. White by the bedside. INDIA drain with high output. 04/10/17-patient seen and examined, no acute event overnight and patient states he is ready for discharge home Objective Vitals Vital Signs Date Time Temp Pulse Resp B/P (MAP) Pulse Ox O2 Delivery O2 Flow Rate FiO2 04/10/17 08:50 65 04/10/17 08:50 93 Room Air 04/10/17 08:00 97.7 76 15 108/65 (79) 93 04/10/17 04:44 98.0 78 20 117/61 (79) 98 04/10/17 00:10 61 04/10/17 00:00 98.9 67 18 124/58 (80) 97 04/09/17 23:59 Room Air 04/09/17 20:27 98.3 75 20 126/59 (81) 100 04/09/17 20:18 74 04/09/17 16:00 98.7 73 16 130/60 (83) 94 I/O 04/09/17 04/09/17 04/09/17 04/10/17 04/10/17 04/10/17 07:00 15:00 23:00 07:00 15:00 23:00 Intake Total 680 ml 100 ml 1060 ml 480 ml Output Total 1790 ml 80 ml 510 ml 630 ml Balance -1110 ml 20 ml 550 ml -150 ml Intake Oral 580 ml 1060 ml 480 ml IV Total 100 ml 100 ml Output Urine Total 1650 ml 400 ml 600 ml Drainage Total 140 ml 80 ml 110 ml 30 ml # Voids 3 # Bowel Movements 0 1 Result Diagram: 04/09/17 0620 04/09/17 0620 Imaging Last Impressions Chest X-Ray 04/08/17 0000 Signed Impressions: Service Date/Time: Saturday, April 08, 2017 05:34 - CONCLUSION: 1. Minimal left lung base airspace disease, likely atelectasis. 2. Otherwise, no significant interval change. Rio Powers MD Abdomen/Pelvis CT 04/05/17 0000 Signed Impressions: Service Date/Time: Wednesday, April 05, 2017 12:58 - CONCLUSION: 1. The appendix remains prominent, measuring up to 1.8 cm, and there is increased angulation of the fat about the appendix and in the right lower quadrant. There is also interval development of focal extraluminal air in the space between the appendix and cecum; this suggests possible rupture of the appendix. 2. Interval development of diffuse gaseous distended loops of small bowel suggesting ileus. 3. The amount of free intraperitoneal gas seen in the nondependent portion of the abdomen and about the liver has decreased compared to 04/03/17. 4. Interval development of mild ascites about the liver and tracking to the root of the mesentery. There is also increasing atelectasis or consolidation in the right lower lung.. Wesly Granda MD CT Angiography 04/03/17 2809 Signed Impressions: Service Date/Time: Monday, April 03, 2017 19:06 - CONCLUSION: 1. There is very limited visualization of the upper abdomen. This demonstrates some punctate collections of free air. CT imaging of the abdomen and pelvis would be warranted for further assessment. 2. No pulmonary embolus identified. 3. Atelectatic changes in the lung bases. 4. 6 mm calcified granuloma in the right lower lobe. Gulshan Carson MD Objective Remarks GENERAL: NAD SKIN: Warm and dry. HEAD: Normocephalic. EYES: No scleral icterus. No injection or drainage. NECK: Supple, trachea midline. No JVD or lymphadenopathy. CARDIOVASCULAR: Regular rate and rhythm without murmurs, gallops, or rubs. RESPIRATORY: Breath sounds equal bilaterally. No accessory muscle use. GASTROINTESTINAL: Abdomen soft, non-tender, nondistended. s/p lap appendectomy, INDIA drain in place MUSCULOSKELETAL: No cyanosis, or edema. BACK: Nontender without obvious deformity. No CVA tenderness. Procedures s/p EMR polypectomy of 3cm polyp at appendiceal orifice 04/03/17 with post procedure pneumoperitoneum, s/p lap appendectomy and washout A/P Problem List: (1) Pneumoperitoneum ICD Code: K66.8 - Other specified disorders of peritoneum (2) Type 1 diabetes mellitus ICD Code: E10.9 - Type 1 diabetes mellitus without complications Status: Chronic Assessment and Plan 71-year-old man with Pneumoperitoneum Bowel perforation s/p s/p EMR polypectomy of 3cm polyp at appendiceal orifice 04/03/17 with post procedure pneumoperitoneum, s/p lap appendectomy and washout Continue Levaquin and Flagyl by mouth Management per general surgery Drain output management per general surgery Diabetes mellitus type 1 Continue basal dosing with patient's own insulin pump Insulin sliding scale CAD- s/p CABG Continue aspirin Hypertension/lipidemia Continue outpatient medications DVT prophylaxis SCDs Naun Tatum MD Apr 10, 2017 12:21
--- NOTE | 2017-04-10 12:27 | HHI.DS ---
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 Abdominal CT scan in ED showed small to moderate amount of free air and small amount of free fluid. He was seen by Dr. Cabrera from general surgery in the [place] ED who recommended conservative management with NPO status and transfer to [facility] under the hospitalist team for medical management for other chronic medical conditions. The patient is seen in his hospital room. He reports that he had the endoscopic resection of the polyp at [facility] 04/03 and went home. He became concerned when he developed acute nausea and vomiting with mild to moderate abdominal pain in the right lower abdominal quadrant and went to the ER for evaluation. He is currently denying any abdominal pain unless the right lower quadrant is palpated or unless he coughs - then the pain is moderate in intensity. He does not feel the need for pain medications since his pain is intermittent and very brief in it's duration. He denies any fevers, chills, sob , cough, or chest pain. CBC/BMP: 04/09/17 0620 04/09/17 0620 Significant Findings Laboratory Tests Test 04/09/17 06:20 Red Blood Count 4.42 MIL/MM3 (4.50-5.90) Neutrophils (%) (Auto) 77.4 % (16.0-70.0) Random Glucose 127 MG/DL (74-106) Calcium Level 7.9 MG/DL (8.5-10.1) Imaging Last Impressions Chest X-Ray 04/08/17 0000 Signed Impressions: Service Date/Time: Saturday, April 08, 2017 05:34 - CONCLUSION: 1. Minimal left lung base airspace disease, likely atelectasis. 2. Otherwise, no significant interval change. Rio Powers MD Abdomen/Pelvis CT 04/05/17 0000 Signed Impressions: Service Date/Time: Wednesday, April 05, 2017 12:58 - CONCLUSION: 1. The appendix remains prominent, measuring up to 1.8 cm, and there is increased angulation of the fat about the appendix and in the right lower quadrant. There is also interval development of focal extraluminal air in the space between the appendix and cecum; this suggests possible rupture of the appendix. 2. Interval development of diffuse gaseous distended loops of small bowel suggesting ileus. 3. The amount of free intraperitoneal gas seen in the nondependent portion of the abdomen and about the liver has decreased compared to 04/03/17. 4. Interval development of mild ascites about the liver and tracking to the root of the mesentery. There is also increasing atelectasis or consolidation in the right lower lung.. Wesly Granda MD CT Angiography 04/03/17 1757 Signed Impressions: Service Date/Time: Monday, April 03, 2017 19:06 - CONCLUSION: 1. There is very limited visualization of the upper abdomen. This demonstrates some punctate collections of free air. CT imaging of the abdomen and pelvis would be warranted for further assessment. 2. No pulmonary embolus identified. 3. Atelectatic changes in the lung bases. 4. 6 mm calcified granuloma in the right lower lobe. Gulshan Carson MD PE at Discharge GENERAL: NAD SKIN: Warm and dry. HEAD: Normocephalic. EYES: No scleral icterus. No injection or drainage. NECK: Supple, trachea midline. No JVD or lymphadenopathy. CARDIOVASCULAR: Regular rate and rhythm without murmurs, gallops, or rubs. RESPIRATORY: Breath sounds equal bilaterally. No accessory muscle use. GASTROINTESTINAL: Abdomen soft, non-tender, nondistended. s/p lap appendectomy, IND[place] drain in place MUSCULOSKELETAL: No cyanosis, or edema. BACK: Nontender without obvious deformity. No CVA tenderness. Hospital Course While in hospital, patient was treated for Pneumoperitoneum Bowel perforation s/p s/p EMR polypectomy of 3cm polyp at appendiceal orifice 04/03/17 with post procedure pneumoperitoneum, s/p lap appendectomy and washout He was treated with Levaquin and Flagyl IV then switched to by mouth Management per general surgery. Patient will need outpatient monitoring of INDIA drain Diabetes mellitus type 1 Patient was continued on basal dosing with patient's own insulin pump He was started on Insulin sliding scale CAD- s/p CABG Aspirin was resumed postprocedure Hypertension/lipidemia He was continued on his treatment for other chronic medical conditions DVT prophylaxis SCDs Pt Condition on Discharge: Good Discharge Disposition: Discharge Home Discharge Time: <= 30 minutes Discharge Instructions DIET: Follow Instructions for: Heart Healthy Diet Activities you can perform: Regular-No Restrictions Follow up Referrals: PCP Follow-up - 1 Week Surgical New Medications: Levofloxacin (Levaquin) 750 Mg Tablet 750 MG PO Q24H for Infection, #7 MG Metronidazole (Flagyl) 500 Mg Tab 500 MG PO Q8H for Infection, #30 TAB Continued Medications: Aspirin (Aspirin) 325 Mg Tab 325 MG PO DAILY, #30 TAB 0 Refills Cilostazol (Cilostazol) 100 Mg Tab 100 MG PO BID for INTERMITTENT CLAUDICATION, TAB 0 Refills Colesevelam (Welchol) 3.75 Gm Pkt 25 MG PO BID for Hyperlipidemia,type 2 diabetes, #30 PKT 0 Refills Cyanocobalamin (B12) 1,000 Mcg Tab 1200 MCG Ergocalciferol (Vitamin D2) 2,000 Unit Tab 88157 UNITS PO WEEKLY for Nutritional Supplement, TAB 0 Refills Metoprolol Tartrate (Metoprolol Tartrate) 25 Mg Tab 25 MG PO BID, #60 TAB 0 Refills Simvastatin (Simvastatin) 40 Mg Tab 40 MG PO HS for Cholesterol Management, #30 TAB 0 Refills [Novolog Pump] () Unknown Dose Naun Tatum MD Apr 10, 2017 12:27
== END 2017-04-10 13:32 | disposition home or self-care (01) | DRG 329 ==
LOC: PHED 16:45 → PHEDA 21:30 → OBSVTOIN 21:30 → HCVI 23:57 → HCPC 04-04 10:22 → N07A 04-05 19:38
PROVIDERS: ADMIT Hospitalist; ATTEND Hospitalist
PROC: 0DBH4ZZ Excision of Cecum, Percutaneous Endoscopic Approach (ICD-10-PCS; 2017-04-05)
PROC: 3E1M38Z Irrigation of Peritoneal Cavity using Irrigating Substance, Percutaneous Approach (ICD-10-PCS; 2017-04-05)
PROC: 0DTJ4ZZ Resection of Appendix, Percutaneous Endoscopic Approach (ICD-10-PCS; principal; 2017-04-05 15:15)
DX: K35.3 Acute appendicitis with localized peritonitis (principal); K63.1 Perforation of intestine (nontraumatic); E10.51 Type 1 diabetes mellitus with diabetic peripheral angiopathy without gangrene; E10.65 Type 1 diabetes mellitus with hyperglycemia; K66.8 Other specified disorders of peritoneum; R09.02 Hypoxemia; I25.2 Old myocardial infarction; I25.10 Atherosclerotic heart disease of native coronary artery without angina pectoris; Z96.41 Presence of insulin pump (external) (internal); R00.0 Tachycardia, unspecified; K42.9 Umbilical hernia without obstruction or gangrene; E78.5 Hyperlipidemia, unspecified; H35.30 Unspecified macular degeneration; I10 Essential (primary) hypertension; Z87.891 Personal history of nicotine dependence; Z89.511 Acquired absence of right leg below knee; Z92.3 Personal history of irradiation; Z79.4 Long term (current) use of insulin; Z95.1 Presence of aortocoronary bypass graft; Z85.46 Personal history of malignant neoplasm of prostate; Z90.79 Acquired absence of other genital organ(s); R19.8 Other specified symptoms and signs involving the digestive system and abdomen; Z86.010 Personal history of colon polyps; Y83.8 Other surgical procedures as the cause of abnormal reaction of the patient, or of later complication, without mention of misadventure at the time of the procedure; Y92.239 Unspecified place in hospital as the place of occurrence of the external cause
CPT/HCPCS: 71045; 71275; 74177; 80048; 80053; 81001; 82948; 83605; 83690; 85025; 85379; 85610; 85730; 87040; 88304; 94150; 94640; 94664; 96361; 96365; 96375; C9113; J0330; J1100; J1815; J1885; J1940; J1956; J2250; J2310; J2370; J2405; J2710; J3010; J3480; J7030; J7040; J7613; Q9963; Q9967